=== PATIENT | male | born 1950 | race Caucasian/White ===

== ENCOUNTER 2020-12-13 09:02 | Outpatient (REF) | payer MEDICARE, BC, SELFPAY ==
[2020-12-13 10:20] LABS: Hemoglobin 16.2 g/dl (14.0-18.0); MANUAL DIFF FLAG SCAN; Mean Corpuscular Volume 95.9 fL (80-98); PLT CLUMP 1; SCAN SMEAR FLAG 1
[2020-12-13 10:22] LABS: Basophils Percent Auto 0.6 % (0-2); Eosinophils Absolute Auto 0.2 X10*3/uL (0.0-0.4); Hematocrit 48.9 % (42-52); Imm Gran Abs Auto 0.02 X10*3/uL (0.00-0.03); Imm Gran Pct Auto 0.4 % (0.0-0.4); Lymphocytes Absolute Auto 1.9 X10*3/uL (1.2-4.9); Lymphocytes Percent Auto 36.3 % (20-40); Mean Corpuscular HGB Conc 33.1 g/dl (31.0-36.0); Mean Corpuscular Hemoglobin 31.8 pg (27.0-33.0); Mean Platelet Volume 11.4 fL (9.4-12.4); Monocytes Absolute Auto 0.5 X10*3/uL (0.1-1.2); Monocytes Percent Auto 8.7 % (2-11); Neutrophils Absolute Auto 2.7 X10*3/uL (2.0-8.3); Platelet Count 136 X10*3/uL (160-400); Red Cell Distribution Width 13.5 % (11.0-16.0); White Blood Count 5.3 X10*3/uL (4.8-10.8)
[2020-12-13 11:06] LABS: Alanine Aminotransferase 19 U/L (0-40); Albumin Level 4.3 g/dL (3.5-5.0); Alkaline Phosphatase 71 U/L (39-117); Anion Gap 11 (12-20); Aspartate Amino Transferase 19 U/L (5-37); Blood Urea Nitrogen 15 mg/dL (9-16); Calcium 9.4 mg/dL (8.4-10.2); Carbon Dioxide 28 mmol/L (22-29); Chloride 105 mmol/L (96-108); Cholesterol 208 mg/dL; Estimated Glomerular Filt Rate > 60; Glucose Random 96 mg/dL (60-115); HDL Cholesterol 47 mg/dL; LDL Cholesterol Calculated 139 mg/dl; Potassium 4.8 mmol/L (3.3-5.1); Sodium 139 mmol/L (135-145); Total Protein 6.7 g/dL (6.5-8.0); Triglycerides 114 mg/dL
[2020-12-13 11:22] LABS: Free T4 (Free Thyroxine) 0.79 ng/dL (0.71-1.85); Prostate Specific Antigen Scr 1.14 ng/mL (<0.05-4.0); Thyroid Stimulating Hormone 1.34 uIU/mL (0.32-4.0)
[2020-12-13 11:59] LABS: Folate 12.1 ng/mL (> or = 4.0); Vitamin B12 890 pg/mL (200-900)
== END 2020-12-13 09:03 | disposition home or self-care (01) ==
LOC: HO.LAB 09:02
PROVIDERS: PCP Internal Medicine; Visit Provider Internal Medicine
DX: Z12.5 Encounter for screening for malignant neoplasm of prostate (principal); K21.9 Gastro-esophageal reflux disease without esophagitis; E78.00 Pure hypercholesterolemia, unspecified
CPT/HCPCS: 36415; 80053; 80061; 82607; 82746; 84153; 84439; 84443; 85025

== ENCOUNTER 2021-06-07 08:56 | Outpatient (REF) | payer MEDICARE, BC, SELFPAY ==
--- NOTE | ~2021-06-07 | XR_ITS ---
EXAMINATION: XR SHOULDER, LEFT CLINICAL INFORMATION: Shoulder pain COMPARISON: Chest radiograph 10/13/2016 TECHNIQUE: Left shoulder is imaged in 3 views. FINDINGS: There is no fracture or dislocation or destructive process. There are mild degenerative changes glenohumeral joint along with mild inferior spurring from the glenoid in inferior medial humeral head. There is no erosive change. Small lateral spur is seen from the acromium, likely origin deltoid. The acromioclavicular alignment is normal. There is mild spurring at the coracoid process at origin short head biceps. There are no visible rotator cuff calcifications. XR/XR shoulder LT min 2V IMPRESSION: 1. Mild degenerative change glenohumeral joint. 2. Mild spurring coracoid process and lateral acromium.
== END 2021-06-07 08:57 | disposition home or self-care (01) ==
LOC: HO.HOSX 08:56
PROVIDERS: Visit Provider Orthopaedic Surgery
DX: M24.812 Other specific joint derangements of left shoulder, not elsewhere classified (principal)
CPT/HCPCS: 73030; 99212

== ENCOUNTER 2021-06-17 19:20 | Outpatient (REF) | payer MEDICARE, BC, SELFPAY ==
--- NOTE | ~2021-06-17 | MR_ITS ---
EXAMINATION: MR SHOULDER WITHOUT CONTRAST, LEFT CLINICAL INFORMATION: Left shoulder pain for 2 months. Weightlifting injury. COMPARISON: Left shoulder radiographs dated 06/07/2021 TECHNIQUE: Multisequence MR imaging of the left shoulder was obtained without contrast on a high-field strength scanner. FINDINGS: ROTATOR CUFF: Full-thickness partial tear involving the anterior supraspinatus tendon measuring approximately 2.0 x 1.7 cm (AP x ML). Moderate subscapularis tendinosis with fluid extending proximally along the myotendinous junction. Moderate subscapularis tendinosis with distal articular surface partial tearing measuring 1.8 cm in ML dimension. No muscle atrophy or fatty infiltration. BICEPS: Thickening and abnormal signal of the proximal long head biceps tendon with flattening as it drapes over the lesser tuberosity, consistent with tendinosis and longitudinal partial tearing. CORACOACROMIAL ARCH: The undersurface of the acromion is curved with prominent subacromial spurring. Moderate acromioclavicular osteoarthritis. LABRUM/CAPSULE: No displaced labral tear. Intact joint capsule. GLENOHUMERAL JOINT/MARROW: Mild articular cartilage thinning. Tiny marginal osteophytes. MR/MR shoulder LT wo con IMPRESSION: 1. Full-thickness tear of the anterior supraspinatus tendon measuring 2.0 x 1.7 cm (AP x ML). Moderate infraspinatus tendinosis with fluid extending proximally along the myotendinous junction. Moderate subscapularis tendinosis with distal articular surface partial tearing. 2. Prominent proximal long head biceps tendinosis with longitudinal partial tearing as it drapes over the lesser tuberosity. 3. Moderate acromioclavicular osteoarthritis with prominent subchondral spurring. 4. Mild glenohumeral osteoarthritis.
== END 2021-06-17 19:21 | disposition home or self-care (01) ==
LOC: HO.MRI 19:20
PROVIDERS: Visit Provider Orthopaedic Surgery
DX: M24.812 Other specific joint derangements of left shoulder, not elsewhere classified (principal)
CPT/HCPCS: 73221

== ENCOUNTER → 2021-06-24 14:19 | Outpatient (BNVA) | payer MEDICARE, BC, SELFPAY | PROVIDERS: PCP Internal Medicine; Visit Provider Orthopaedic Surgery | DX: M75.122 Complete rotator cuff tear or rupture of left shoulder, not specified as traumatic (principal) | CPT/HCPCS: 99212 ==

== ENCOUNTER 2021-07-10 06:42 | Day surgery (SDC) | payer MEDICARE, BC, SELFPAY ==
[2021-07-02 16:41] VITALS: BMI 29.0
--- NOTE | 2021-07-09 08:22 | HO.ANESPROP2 ---
Documented by User: Laura Roblero NP 07/09/21 08:25 HPI - Anesthesia Eval Consult details Narrative: 70yo M for Left Arthroscopic Rotator Cuff Repair PMFSH Active Problems Active Problems: All Active Problems (Updated 06/24/21 @ 15:20 by Jeancarlos Olivo MD) Complete rotator cuff tear of left shoulder (Acute) Internal derangement of left shoulder (Acute) Impacted cerumen of both ears (Acute) Medicare annual wellness visit, initial (Acute) BPH (benign prostatic hyperplasia) (Acute) Hypercholesterolemia (Acute) GERD (gastroesophageal reflux disease) (Acute) Cerumen impaction (Acute) Past Medical History Medical History BPH (benign prostatic hyperplasia) GERD (gastroesophageal reflux disease) Hypercholesterolemia Reactive airway disease Surgical History Surgical History (Updated 07/10/21 @ 06:59 by Gladis Flores RN) H/O vasectomy History of cataract surgery Hx of colonoscopy Hx of LASIK Hx of tonsillectomy Tear of right supraspinatus tendon Social History Social History Alcohol intake: never Patient Tobacco Use Status: Former Tobacco user Quit Date: 40 yrs ago Use of substances other than those prescribed or required for medical reasons: No Are you DNR?: No Advance Directives: No Advance Directives Information Provided: Yes Current occupational status: employed 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 Allergies Allergy/AdvReac Type Severity Reaction Status Date / Time No Known Allergies Allergy Verified 07/10/21 06:49 Home Medications Medication Instructions Recorded Confirmed Last Taken Type acidophilus 100 million 1 cap PO DAILY cap 09/27/20 12/12/20 Unknown History cell-pectin, citrus 10 mg capsule (Acidophilus Probiotic) ascorbate calcium (vitamin C) 500 500 mg PO DAILY 09/27/20 12/12/20 Unknown History mg tablet aspirin 81 mg tablet,delayed 81 mg PO DAILY 09/27/20 12/12/20 Unknown History release (Adult Low Dose Aspirin) cetirizine 10 mg capsule (Zyrtec) 10 mg PO DAILY PRN 09/27/20 12/12/20 Unknown History fluticasone propionate 50 1 spray INTRANASAL DAILY 09/27/20 12/12/20 Unknown History mcg/actuation nasal spray,suspension (Flonase Allergy Relief) lysine 500 mg tablet (L-Lysine) 500 mg PO DAILY 09/27/20 12/12/20 Unknown History psyllium husk 3.4 gram/5.4 gram 1 tbsp PO DAILY 09/27/20 12/12/20 Unknown History oral powder (Metamucil) simethicone 125 mg capsule (Gas 125 mg PO BID-QID PRN 09/27/20 12/12/20 Unknown History Relief (simethicone)) Exam Exam Date and Time: July 09, 2021 0822 Height,Weight and Vital Signs: Height 5 ft 3 in Weight 74.389 kg Pertinent Lab Results Pertinent Lab Results: Laboratory Tests 12/13/20 12/13/20 09:29 09:29 WBC 5.3 Hgb 16.2 Hct 48.9 Plt Count 136 L Sodium 139 Potassium 4.8 Chloride 105 Carbon Dioxide 28 BUN 15 Creatinine 1.09 Assessment and Plan Assessment Anesthesia Assessment: Chart Reviewed Documented by User: Viji eHrman MD 07/10/21 07:22 [facility] Past Medical History Medical History BPH (benign prostatic hyperplasia) GERD (gastroesophageal reflux disease) Hypercholesterolemia Reactive airway disease Surgical History Surgical History (Updated 07/10/21 @ 06:59 by Gladis Flores RN) H/O vasectomy History of cataract surgery Hx of colonoscopy Hx of LASIK Hx of tonsillectomy Tear of right supraspinatus tendon Social History Social History Alcohol intake: never Patient Tobacco Use Status: Former Tobacco user Quit Date: 40 yrs ago Use of substances other than those prescribed or required for medical reasons: No Are you DNR?: No Advance Directives: No Advance Directives Information Provided: Yes Current occupational status: employed 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 Allergies Allergy/AdvReac Type Severity Reaction Status Date / Time No Known Allergies Allergy Verified 07/10/21 06:49 Home Medications Medication Instructions Recorded Confirmed Last Taken Type acidophilus 100 million 1 cap PO DAILY cap 09/27/20 12/12/20 Unknown History cell-pectin, citrus 10 mg capsule (Acidophilus Probiotic) ascorbate calcium (vitamin C) 500 500 mg PO DAILY 09/27/20 12/12/20 Unknown History mg tablet aspirin 81 mg tablet,delayed 81 mg PO DAILY 09/27/20 12/12/20 Unknown History release (Adult Low Dose Aspirin) cetirizine 10 mg capsule (Zyrtec) 10 mg PO DAILY PRN 09/27/20 12/12/20 Unknown History fluticasone propionate 50 1 spray INTRANASAL DAILY 09/27/20 12/12/20 Unknown History mcg/actuation nasal spray,suspension (Flonase Allergy Relief) lysine 500 mg tablet (L-Lysine) 500 mg PO DAILY 09/27/20 12/12/20 Unknown History psyllium husk 3.4 gram/5.4 gram 1 tbsp PO DAILY 09/27/20 12/12/20 Unknown History oral powder (Metamucil) simethicone 125 mg capsule (Gas 125 mg PO BID-QID PRN 09/27/20 12/12/20 Unknown History Relief (simethicone)) Exam Airway Mallampati Class: II TM Dist: >3cm Neck ROM: Full Partial: Upper and Lower
[2021-07-10] VITALS (7 sets, daily range): BP systolic 106–137; BP diastolic 56–81; PULSE 58–62; RESP 16–18; TEMP 36.6–36.9; O2SAT 95–98
[2021-07-10] MEDS: Lactated Ringers 1,000 ML 100 ML IVCONT (07:21)
--- NOTE | 2021-07-10 08:37 | MHC.SHP ---
Pre-Procedural Eval Section A Date of Service: 07/10/21 The patient is an INPATIENT: No Changes since office visit: Yes Patient answered all questions; No Cold of Flu in the past 2 weeks, No New Medical Problems and No Changes in Medication The History & Physical has been completed within 30 days and I have reviewed it.: Yes Section B Chief Complaint: rotator cuff tear Allergies: Allergies Allergy/AdvReac Type Severity Reaction Status Date / Time No Known Allergies Allergy Verified 07/10/21 06:49 Plan I have reviewed the history and physical and performed a pertinent physical examination on my patient. No changes have occurred unless specified.
--- NOTE | 2021-07-10 11:17 | P.BOP_ITS ---
Brief Operative Note Date of Service: 07/10/21 Pre-op diagnosis: left rotator cuff tear and SAD with biceps tenotomy Post-op diagnosis: same Procedure: Left rtc repair Implants: Gutierrez and nephew helacoil 4.75 x 2 and 5.0 helacoil knotless x2 Surgeon: Jeancarlos Olivo MD Anesthesia: GETA and regional Was an Hand Printed Circuit Board Assembler used for this Procedure?: Yes Hand Printed Circuit Board Assembler: Chayito Burris Estimated blood loss (mL): 10 IV fluids (mL): 1,000 Pathology: none sent Condition: stable Disposition: PACU
--- NOTE | 2021-07-10 11:21 | W.PM.OPN ---
Operative Note Operative Note Date of Service: 07/10/21 Narrative: Pre-op diagnosis: left rotator cuff tear and SAD with biceps tenotomy Post-op diagnosis: same Procedure: Left rtc repair Implants: Gutierrez and nephew helacoil 4.75 x 2 and 5.0 helacoil knotless x2 Surgeon: Jeancarlos Olivo MD Anesthesia: GETA and regional Was an Funeral Arranger used for this Procedure?: Yes Funeral Arranger: Chayito Burris Estimated blood loss (mL): 10 IV fluids (mL): 1,000 Pathology: none sent Condition: stable Disposition: PACU Procedure in detail: Patient was brought to the operating room and placed the the beach chair position. All bony prominences were well padded and the limb was prepped and draped in standard sterile fashion. A time out was called to identify proper site, proper procedure and proper surgeon. IV antibiotics per weight were administered. I began by making a posterolateral stab incision with a 15 blade. A blunt trochar was placed into the glenohumeral joint and I insufflated the joint with saline and a 30 degree arthroscope was placed. I established an outside- in anterior portal just distal to the biceps tendon. I then began my inspection of the glenohumeral joint. There was circumferential labral tearing and a tear of the biceps anchor. I performed a biceps tenotomy and circumferential labral debridement With a shaver and Wand. Cartilaginous surfaces were normal. This subscap [place] was intact. There was a large undersurface full-thickness rotator cuff tear. I then removed the trochar and entered the subacromial space. A direct lateral portal was then established and I performed a bursectomy. The cuff was then examined. There was a large crescentic full-thickness tear of the supraspinatus. it was mobile and I placed 2 4.75 medial row Healicoil anchors and then using a scorpion ran each of these a sutures through the cuff. I then debrided the rotator cuff bed down to bleeding bone and placed 2 lateral row 5.0 knotless suture anchors and a cross bridge technique brought tht cuff over adn down to the alteral row. I had excellent reproduction of the normal anatomy of rotator cuff and was satrisfied with the compression and tension in the cuff. I then performed a 5 mm subacromial decompression with a bur and took my final pictures. I was satisfied with the repair and the extent of decompression. All instrumentation was then removed portals were closed with nylon. Patient was placed into a abduction sling after sterile dressings were applied. He was extubated brought to recovery in stable condition there were no known complications.
== END 2021-07-10 12:42 | disposition home or self-care (01) ==
PROVIDERS: Visit Provider Orthopaedic Surgery
PROC: (CPT 29827; principal; 2021-07-10 08:20)
DX: M75.122 Complete rotator cuff tear or rupture of left shoulder, not specified as traumatic (principal); M75.42 Impingement syndrome of left shoulder; Z91.81 History of falling; J45.909 Unspecified asthma, uncomplicated; Z79.82 Long term (current) use of aspirin; Z87.891 Personal history of nicotine dependence; Z79.899 Other long term (current) drug therapy
CPT/HCPCS: 29827; 29826; 29822; C1713; J0171; J0690; J1100; J2250; J2405; J3010

== ENCOUNTER → 2021-07-22 11:28 | Outpatient (BNVA) | payer MEDICARE, BC, SELFPAY | PROVIDERS: Visit Provider Physician Assistant | DX: M75.122 Complete rotator cuff tear or rupture of left shoulder, not specified as traumatic (principal); Z98.890 Other specified postprocedural states | CPT/HCPCS: 99212 ==

== ENCOUNTER → 2021-08-21 10:59 | Outpatient (BNVA) | payer MEDICARE, BC, SELFPAY | PROVIDERS: Visit Provider Physician Assistant | DX: Z98.890 Other specified postprocedural states (principal) | CPT/HCPCS: 99212 ==

== ENCOUNTER → 2021-10-04 09:20 | Outpatient (BNVA) | payer MEDICARE, BC, SELFPAY | PROVIDERS: Visit Provider Physician Assistant | DX: Z47.89 Encounter for other orthopedic aftercare (principal) | CPT/HCPCS: 99212 ==

== ENCOUNTER → 2021-11-15 09:41 | Outpatient (BNVA) | payer MEDICARE, BC, SELFPAY | PROVIDERS: Visit Provider Orthopaedic Surgery | DX: Z98.890 Other specified postprocedural states (principal) | CPT/HCPCS: 99212 ==

== ENCOUNTER 2021-11-19 09:00 | Outpatient (RCR) | payer MEDICARE, BC, SELFPAY ==
--- NOTE | 2021-07-15 11:12 | MHC.PT.EP ---
[facility] [place] Office [place] Office [place] Office [address] Stefanie Ibarra [address] [phone] F: [phone] F: [phone] F: [phone] F: [phone] Physical Therapy Plan of Care Date of Evaluation: Date of Surgery: 07/10/21 Diagnosis: S/P left rotator cuff tear and SAD with biceps tenotomy ON 07/10/21 Assessment: 70 YO MALE REF TO PT S/P LEFT ARTHROSCOPIC RC (SUPRASPINATUS) REPAIR W BICEPS TENOTOMY AND SAD ON 07/10/21. Pt IS Rt HAND DOMINANT AND HAS H/O Rt RC REPAIR IN 2017. 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 THIS AM Pt PRESENTED POSTOP DAY 5 IN HIS IMMOB W ABD WEDGE. Pt HAS DECR ROM LEFT UE (SH AND ELB), DECR ADL PERFORMANCE, ACUTE POST -OP SORENESS WELL MANAGED, AND CLEAN/ HEALING INCISIONAL PORTS LEFT SH. Pt IS MOTIVATED FOR REHAB, HIS IS VERY SUPPORTIVE. HE IS A GOOD CANDIDATE FOR SKILLED PT TO GUIDE HIM IN HIS POST OP COURSE. Frequency and Duration: The patient will be seen 2 x WK x 14 WKS Short Term Goals: INITIATE ROM AND THER EXER PER PROTOCOL FOR Lt DISTAL UE AND PROM Lt PATRICK 2 WKS Pt'S LEFT SH PAIN DECR TO 2-3/10 IN 3 WKS REINFORCE PRECAUTIONS AND RESTRICTIONS ALONG POST OP Lt SH RC REPAIR/ BICEPS TENOTOMY/ SAD IN 2 WKS ENHANCE ADEQUATE SCAPULAR FUNCTION/ PREVENT MUSCULAR INHIBITION IN 3 WKS Clerical Methods Analyst Goals: Pt DEMON FULL PROM LEFT SH IN 4-5 WKS Pt DEMON FULL AROM Lt SH IN 10 WKS RESTORE Pt'S Lt SH STRENGTH PER PROTOCOL IN 14 WKS Pt RESUME ADLs ALLOWED BY PROTOCOL DEMON BY Pt'S SPADI SCORE IMPROVED BY AT LEAST 10 POINTS ( AT [id number]) IN 14 WKS Treatment Plan: Modalities to reduce pain, spasms and effusion. Manual therapy to restore motion and function. Therapeutic exercise to improve strength and flexibility. Neuromuscular re-education for posture and balance. Therapeutic activities to return to functional activities of daily living. Electronically signed by: Katelyn Russell PT Please sign and return to therapist. Thank you for your referral.
--- NOTE | 2021-11-19 09:52 | MHC.PT.DC ---
[facility] [place] Office [place] Office [place] Office [address] Stefanie Ibarra [address] [phone] F: [phone] F: [phone] F: [phone] F: [phone] Physical Therapy Discharge Report Diagnosis: S/P left rotator cuff tear and SAD with biceps tenotomy ON 07/10/21 Date of Surgery: 07/10/21 Date of Evaluation: 07/15/21 Date of Discharge: 11/19/21 Treatments to Date: 28 Cancellations to Date: No Shows to Date: Discharge Status: Achieved Goals Improved Function Independent with HEP Discharge Summary: Pt PROGRESSED NICELY IN HIS POST OP COURSE FOR Lt SH RC REPAIR W BICEP TENOTOMY. Pt DEMON FULL AROM, FUNCTIONAL AND EFFICIENT MUSCULAR STRENGTH IN LEFT SH COMPLEX, RESOLVED PAIN, AND RETURN TO REG ADLs- HE MET HIS PT GOALS AT THIS TIME , IS VERY MOTIVATED, AND HE FEELS READY FOR D/C AND CONT ON HIS OWN. OF SIGNIFICANCE, Pt'S SPADI SCORE IMPROVED FROM 116/130 AT EVAL TO 5/130 AT D/C TODAY. Electronically signed by: Katelyn Russell,PT Please sign and return to therapist. Thank you for your referral.
== END 2021-11-19 09:52 | disposition home or self-care (01) ==
LOC: HO.PT 09:00
PROVIDERS: Visit Provider Orthopaedic Surgery
DX: M75.122 Complete rotator cuff tear or rupture of left shoulder, not specified as traumatic (principal)
CPT/HCPCS: 97110; 97140; 97162; 97530

== ENCOUNTER 2021-12-20 08:22 | Outpatient (REF) | payer MEDICARE, BC, SELFPAY ==
[2021-12-20 08:47] LABS: MANUAL DIFF FLAG NO
[2021-12-20 09:09] LABS: Basophils Percent Auto 0.4 % (0-2); Eosinophils Absolute Auto 0.1 X10*3/uL (0.0-0.4); Eosinophils Percent Auto 2.1 % (0-4); Hemoglobin 16.1 g/dl (14.0-18.0); Imm Gran Abs Auto 0.01 X10*3/uL (0.00-0.03); Imm Gran Pct Auto 0.1 % (0.0-0.4); Lymphocytes Absolute Auto 1.9 X10*3/uL (1.2-4.9); Lymphocytes Percent Auto 28.5 % (20-40); Mean Corpuscular HGB Conc 33.5 g/dl (31.0-36.0); Mean Corpuscular Hemoglobin 31.3 pg (27.0-33.0); Mean Corpuscular Volume 93.2 fL (80.0-98.0); Mean Platelet Volume 11.6 fL (9.4-12.4); Monocytes Absolute Auto 0.6 X10*3/uL (0.1-1.2); Monocytes Percent Auto 8.6 % (2-11); Neutrophils Percent Auto 60.3 % (45-73); Platelet Count 150 X10*3/uL (160-400); Red Blood Count 5.15 X10*6/uL (4.60-5.80); Red Cell Distribution Width 13.7 % (11.0-16.0); White Blood Count 6.7 X10*3/uL (4.8-10.8)
[2021-12-20 09:38] LABS: Alanine Aminotransferase 20 U/L (0-40); Albumin Level 4.3 g/dL (3.5-5.0); Alkaline Phosphatase 79 U/L (39-117); Anion Gap 14 (12-20); Aspartate Amino Transferase 18 U/L (5-37); Blood Urea Nitrogen 18 mg/dL (9-16); Calcium 9.7 mg/dL (8.4-10.2); Carbon Dioxide 26 mmol/L (22-29); Chloride 105 mmol/L (96-108); Cholesterol 197 mg/dL; Estimated Glomerular Filt Rate > 60; Glucose Fasting 97 mg/dL (60-99); HDL Cholesterol 44 mg/dL; LDL Cholesterol Calculated 135 mg/dl; Potassium 4.8 mmol/L (3.3-5.1); Sodium 140 mmol/L (135-145); Total Protein 6.7 g/dL (6.5-8.0); Triglycerides 90 mg/dL
[2021-12-23 17:46] LABS: Lyme Abs Screen <0.90 index
== END 2021-12-20 08:23 | disposition home or self-care (01) ==
LOC: HO.LAB 08:22
PROVIDERS: PCP Internal Medicine; Visit Provider Nurse Practitioner Family
DX: Z00.00 Encounter for general adult medical examination without abnormal findings (principal); Z12.5 Encounter for screening for malignant neoplasm of prostate; I10 Essential (primary) hypertension; E78.00 Pure hypercholesterolemia, unspecified; T14.8XXA Other injury of unspecified body region, initial encounter; W57.XXXA Bitten or stung by nonvenomous insect and other nonvenomous arthropods, initial encounter
CPT/HCPCS: 36415; 80053; 80061; 84153; 85025; 86617; 86618

== ENCOUNTER 2022-04-02 11:20 | Outpatient (REF) | payer MEDICARE, BC, SELFPAY ==
--- NOTE | ~2022-04-02 | US_ITS ---
EXAMINATION: US RETROPERITONEAL LIMITED (AORTA) CLINICAL INFORMATION: Personal history of nicotine dependence. COMPARISON: None TECHNIQUE: Gaspar-scale, color Doppler and spectral Doppler evaluation of the abdominal aorta. FINDINGS: There is evidence of atherosclerotic disease with vessel wall calcification. The abdominal aorta is normal in caliber. No aneurysm is seen. The measurements of the aorta in maximum AP and transverse dimensions respectively are as follows: Proximal: 2.7 x 2.6 cm. Mid: 2.0 x 2.1 cm. Distal: 1.9 x 1.6 cm. PSV: 140 cm/s. The measurements of the common iliac arteries in maximum AP and TRV dimensions are as follows: Right: AP: 1.5 cm. TRV: 1.4 cm. Left: AP: 1.5 cm. TRV: 1.4 cm. US/US aorta IMPRESSION: No aneurysm is seen.
== END 2022-04-02 11:21 | disposition home or self-care (01) ==
LOC: HO.HMGCX 11:20
PROVIDERS: Visit Provider Nurse Practitioner Family
DX: Z13.6 Encounter for screening for cardiovascular disorders (principal); Z87.891 Personal history of nicotine dependence
CPT/HCPCS: 76775

== ENCOUNTER 2022-10-29 13:07 | Outpatient (REF) | payer MEDICARE, BC, SELFPAY ==
--- NOTE | ~2022-10-29 | XR_ITS ---
EXAMINATION: XR HAND, RIGHT CLINICAL INFORMATION: Middle finger pain. COMPARISON: None available. TECHNIQUE: PA, lateral, and oblique views of the right hand. FINDINGS: Bony alignment and mineralization are normal. There is a neutral ulnar variance. There is very mild osteoarthritic change of the interphalangeal joint of the thumb. There is variable osteoarthritic change of the second through fifth distal interphalangeal joints. This is most severe of the third and fifth distal interphalangeal joints. There is further mild osteoarthritic change of the second through fourth proximal interphalangeal joints. Mild osteoarthritic change is seen of the first through third metacarpophalangeal joints. No fracture or dislocation is seen. The proximal and distal carpal rows are intact. There is no abnormal bone erosion. No focal soft tissue swelling, gas or foreign body is seen. XR/XR hand RT 2V IMPRESSION: 1. There are multi-focal osteoarthritic changes of the right hand, as detailed. 2. No fracture or dislocation is seen. 3. There is no abnormal bony erosive change.
== END 2022-10-29 13:08 | disposition home or self-care (01) ==
LOC: HO.XRAY 13:07
PROVIDERS: PCP Internal Medicine; Visit Provider Internal Medicine
DX: M79.644 Pain in right finger(s) (principal)
CPT/HCPCS: 73120

== ENCOUNTER 2022-12-09 10:10 | Outpatient (REF) | payer MEDICARE, BC, SELFPAY ==
[2022-12-09 10:19] LABS: MANUAL DIFF FLAG NO
[2022-12-09 10:49] LABS: Basophils Absolute Auto 0.1 X10*3/uL (0.0-0.2); Basophils Percent Auto 0.8 % (0-2); Eosinophils Absolute Auto 0.1 X10*3/uL (0.0-0.4); Eosinophils Percent Auto 1.6 % (0-4); Hematocrit 48.4 % (42.0-52.0); Hemoglobin 16.1 g/dl (14.0-18.0); Imm Gran Abs Auto 0.01 X10*3/uL (0.00-0.03); Imm Gran Pct Auto 0.2 % (0.0-0.4); Lymphocytes Absolute Auto 1.9 X10*3/uL (1.2-4.9); Lymphocytes Percent Auto 30.4 % (20-40); Mean Corpuscular HGB Conc 33.3 g/dl (31.0-36.0); Mean Corpuscular Hemoglobin 31.3 pg (27.0-33.0); Mean Corpuscular Volume 94.2 fL (80.0-98.0); Mean Platelet Volume 11.5 fL (9.4-12.4); Monocytes Absolute Auto 0.5 X10*3/uL (0.1-1.2); Neutrophils Absolute Auto 3.7 x10*3/uL (2.0-8.3); Platelet Count 144 X10*3/uL (160-400); Red Blood Count 5.14 X10*6/uL (4.60-5.80); White Blood Count 6.3 X10*3/uL (4.8-10.8)
[2022-12-09 11:15] LABS: Alanine Aminotransferase 20 U/L (0-40); Albumin Level 4.3 g/dL (3.5-5.0); Alkaline Phosphatase 73 U/L (39-117); Anion Gap 10 (12-20); Aspartate Amino Transferase 22 U/L (5-37); Blood Urea Nitrogen 19 mg/dL (9-16); Calcium 9.2 mg/dL (8.4-10.2); Carbon Dioxide 28 mmol/L (22-29); Chloride 106 mmol/L (96-108); Cholesterol 202 mg/dL; Estimated Glomerular Filt Rate > 60; Glucose Random 93 mg/dL (60-115); HDL Cholesterol 43 mg/dL; LDL Cholesterol Calculated 140 mg/dl; Potassium 4.4 mmol/L (3.3-5.1); Sodium 140 mmol/L (135-145); Total Protein 6.5 g/dL (6.5-8.0); Triglycerides 95 mg/dL
[2022-12-09 11:46] LABS: Folate 14.9 ng/mL (> or = 4.0); Free T4 (Free Thyroxine) 0.84 ng/dL (0.71-1.85); Thyroid Stimulating Hormone 1.17 uIU/mL (0.32-4.0); Vitamin B12 618 pg/mL (200-900)
== END 2022-12-09 10:11 | disposition home or self-care (01) ==
LOC: HO.LAB 10:10
PROVIDERS: PCP Internal Medicine; Visit Provider Internal Medicine
DX: E78.00 Pure hypercholesterolemia, unspecified (principal)
CPT/HCPCS: 36415; 80053; 80061; 82607; 82746; 84439; 84443; 85025

== ENCOUNTER → 2023-05-13 08:21 | Outpatient (BNVA) | payer MEDICARE, BC, SELFPAY | PROVIDERS: PCP Internal Medicine; Visit Provider Physical Medicine & Rehabilitation ==

== ENCOUNTER → 2023-05-13 08:21 | Outpatient (AMB) | payer MEDICARE, BC, SELFPAY ==
--- NOTE | 2023-05-13 08:26 | A.OFFVIS_ITS ---
Intake Vital Signs 05/13/23 08:34 Height 5 ft 3 in Weight 162 lb BMI 28.7 Intake Visit Reasons: New Prob- B/L hand pain and numbness Intake Note: Wu is a 72 year old right hand dominant male who presents today for a new problem visit with complaints of hand pain, numbness and tingling. States he is experiencing CTS for about 1.5 year and has worsen especially in the mornings. States he wakes up with stiff hands and at times painful. Reports he tried a brace but it did not help much therefore he discontinue use of brace. Ni EMG done. Allergies No Known Allergies Allergy (Verified 05/13/23 08:37) Medication List - Last Reconciled 05/13/23 by Agustina Mai MD acidophilus-pectin, citrus 100 million cell-10 mg (Acidophilus Probiotic) 1 cap PO DAILY albuterol sulfate 90 mcg/actuation (ProAir HFA) 2 puffs inhalation Q4-6H PRN ascorbate calcium (vitamin C) 500 mg PO DAILY blood pressure monitor (Blood Pressure Kit) As directed cetirizine (Zyrtec) 10 mg PO DAILY PRN cholecalciferol (vitamin D3) 50 mcg PO DAILY fluticasone propionate 50 mcg/actuation (Flonase Allergy Relief) 1 spray intranasal DAILY lysine (L-Lysine) 500 mg PO DAILY magnesium oxide 400 mg PO DAILY psyllium husk (Metamucil) 1 tbsp PO DAILY simethicone (Gas Relief (simethicone)) 125 mg PO BID-QID PRN HPI HPI Comments History of Present Illness Details Over 1 year of numbness on 3rd and 4th digits, but when he wakes up the whole hand is numb. Burning sensation sometimes. No EMG yet. Not dropping things. 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 Denies neck pain. Treatment done so far: aspirin for severe prn home exercises brace did not work [facility] Medical History (Updated 05/13/23 @ 08:38 by Agustina Mai MD) Arthritis of right hand COVID-19 virus infection Elevated blood pressure reading Tick bite (~11/2021) Encounter for Medicare annual wellness exam Internal derangement of left shoulder Impacted cerumen of both ears Medicare annual wellness visit, initial BPH (benign prostatic hyperplasia) Reactive airway disease Hypercholesterolemia GERD (gastroesophageal reflux disease) Cerumen impaction Surgical History History of rotator cuff surgery S/P left rotator cuff repair Hx of colonoscopy Hx of LASIK History of cataract surgery H/O vasectomy Hx of tonsillectomy Tear of right supraspinatus tendon Social History Housing: House Alcohol intake: never Patient Tobacco Use Status: Former Tobacco user Quit Date: 40 yrs ago e-Cigarette/Vaping Use: Never Used Second Hand Smoke Exposure: No Current occupational status: employed 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 MSK: Inspection reveals appropriate head and neck positioning. No pain with palpation over the neck musculature. Cervical ROM was full. Spurling's sign negative. Bilateral shoulder ROM WNL. No ligamentous laxity or crepitance. No increased effusion. Hawkin's test is negative. No joint effusion noted. No deformity noted. No intrinsic hand weakness noted. No atrophy noted. Fredis test negative. Carpal compression test negative. Tinel sign negative. Isabella nodes on 3rd and 2nd DIP joints. Strength is 5/5 in all muscle groups tested. No increased tone noted. Neurological: Neurologic examination of the upper and lower extremities was nonfocal with intact sensation, muscle stretch reflexes and without focal motor deficits . Mariee?s negative bilaterally. Gait is non-antalgic without loss of balance. Results Reviewed Results Reviewed: I independently reviewed the results of the following: X-ray right hand showed arthritis in the DIP joints EXAMINATION: XR HAND, RIGHT CLINICAL INFORMATION: Middle finger pain. COMPARISON: None available. TECHNIQUE: PA, lateral, and oblique views of the right hand. FINDINGS: Bony alignment and mineralization are normal. There is a neutral ulnar variance. There is very mild osteoarthritic change of the interphalangeal joint of the thumb. There is variable osteoarthritic change of the second through fifth distal interphalangeal joints. This is most severe of the third and fifth distal interphalangeal joints. There is further mild osteoarthritic change of the second through fourth proximal interphalangeal joints. Mild osteoarthritic change is seen of the first through third metacarpophalangeal joints. No fracture or dislocation is seen. The proximal and distal carpal rows are intact. There is no abnormal bone erosion. No focal soft tissue swelling, gas or foreign body is seen. XR/XR hand RT 2V IMPRESSION: 1. There are multi-focal osteoarthritic changes of the right hand, as detailed. 2. No fracture or dislocation is seen. 3. There is no abnormal bony erosive change. I reviewed records from the following: Orthopedics PCP Assessment & Plan Assessment & Plan (1) Arthritis of right hand: Code(s): M19.041 - Primary osteoarthritis, right hand (2) Numbness of fingers: Comment: R hand 3rd and 4th finger Code(s): R20.0 - Anesthesia of skin (3) Numbness of right hand: Code(s): R20.0 - Anesthesia of skin Plan Documented right hand arthritis basin x-ray. Complaining of right hand numbness which is consistent with Carpal Tunnel Syndrome. We will schedule for EMG. We talked about wearing the wrist splints more consistently every night. We talked about possible surgery if EMG shows moderate to severe results. Assessment and plan discussed with patient, and patient was agreeable. All questions were answered thoroughly. Agustina Mai MD, BENJAMÍN Board Certified, [place] [employer] and [employer] (ABPMR) Board Certified, [place] [employer] Electrodiagnostic [employer] (ABEM) Coding Level of Care Code New Pt Level 3 (26788) Diagnoses Arthritis of right hand M19.041 Numbness of fingers R20.0 Numbness of right hand R20.0
[2023-05-13 08:34] VITALS: BMI 28.7
== END ==
PROVIDERS: PCP Internal Medicine; Visit Provider Physical Medicine & Rehabilitation
DX: M19.041 Primary osteoarthritis, right hand (principal); R20.0 Anesthesia of skin
CPT/HCPCS: 99203

== ENCOUNTER 2023-06-10 13:13 | Outpatient (REF) | payer MEDICARE, BC, SELFPAY ==
--- NOTE | 2023-06-10 13:15 | EMG_ITS ---
Chief complaint: Right hand numbness, improved since wearing wrist splint more consistently at night Reason for referral: Evaluate for Carpal Tunnel Syndrome Procedure done: Right upper extremity NCS/EMG Precautions and/or limitations: None The limb temperature was monitored continuously and remained between 32-36 degrees C during the performance of the NCS. Nerve Conduction Studies Anti Sensory Summary Table ?Stim Site NR Onset (ms) Norm Onset (ms) Peak (ms) Norm Peak (ms) O-P Amp (?V) Norm O-P Amp Site1 Site2 Delta-0 (ms) Dist (cm) Jordan (m/s) Norm Jordan (m/s) Right Median Anti Sensory (2nd Digit) Wrist ? 4.7 5.9 <3.6 12.7 >10 Wrist 2nd Digit 4.7 14.0 30 Right Radial Anti Sensory (Thumb) Forearm ? 2.3 2.6 <3.1 11.1 Forearm Thumb 2.3 0.0 Right Ulnar Anti Sensory (5th Digit) Wrist ? 2.7 3.7 <3.7 15.4 >15.0 Wrist 5th Digit 2.7 14.0 52 Motor Summary Table ?Stim Site NR Onset (ms) Norm Onset (ms) O-P Amp (mV) Norm O-P Amp iAmp (mV) Amp (1st) (%) Site1 Site2 Delta-0 (ms) Dist (cm) Jordan (m/s) Norm Jordan (m/s) Right Median Motor (Abd Poll Brev) Wrist ? 5.5 <3.9 4.6 >4.5 5.5 100.0 Elbow Wrist 4.4 19.0 43 >45 Elbow ? 9.9 4.2 5.1 91.3 Right Ulnar Motor (Abd Dig Minimi) Wrist ? 3.0 <3.0 10.6 >5 12.9 100.0 B Elbow Wrist 4.0 19.0 48 >45 B Elbow ? 7.0 10.4 12.9 98.1 A Elbow B Elbow 1.5 10.0 67 >45 A Elbow ? 8.5 10.2 12.6 96.2 EMG ?Side Muscle Nerve Root Ins Act Fibs Psw Amp Dur Poly Recrt Int Pat Comment Right 1stDorInt Ulnar C8-T1 Nml Nml Nml Nml Nml 0 Nml Complete Right FlexCarRad Median C6-7 Nml Nml Nml Nml Nml 0 Nml Complete Right Biceps Musculocut C5-6 Nml Nml Nml Nml Nml 0 Nml Complete Right Triceps Radial C6-7-8 Nml Nml Nml Nml Nml 0 Nml Complete Right Deltoid Axillary C5-6 Nml Nml Nml Nml Nml 0 Nml Complete FINDINGS: Right median motor nerve showed prolonged distal latency, normal amplitude and slow conduction velocity. Right median sensory nerve showed prolonged peak latency. All other nerves tested were within normal. Concentric needle EMG was performed in selected muscles of the right upper extremity. Study did not reveal signs of electric abnormalities as shown in the table below. IMPRESSION: 1. This is an abnormal study. 2. There is electrodiagnostic evidence for right moderate-severe median neuropathy at the wrist, consistent with carpal tunnel syndrome. 3. There is no electrodiagnostic evidence for ulnar neuropathy, brachial plexopathy, or cervical radiculopathy. Clinical comment: He will consider surgery, to call ortho office if needs appointment. Referring him to OT. Thank you for your kind referral. Agustina Mai MD, BENJAMÍN Board Certified, [place] Board [employer] Physical Medicine and Rehabilitation (ABPMR) Board Certified, [place] Board of Electrodiagnostic Medicine (ABEM) CODIN [id number] MTDD
== END 2023-06-10 13:14 | disposition home or self-care (01) ==
LOC: HO.NEURO 13:13
PROVIDERS: PCP Internal Medicine; Visit Provider Physical Medicine & Rehabilitation
DX: M19.041 Primary osteoarthritis, right hand (principal); R20.0 Anesthesia of skin
CPT/HCPCS: 95886; 95909

== ENCOUNTER → 2023-06-10 13:15 | Outpatient (BNV) | payer MEDICARE, BC, SELFPAY | PROVIDERS: PCP Internal Medicine; Visit Provider Physical Medicine & Rehabilitation | DX: G56.11 Other lesions of median nerve, right upper limb (principal); G56.01 Carpal tunnel syndrome, right upper limb | CPT/HCPCS: 95886; 95909 ==

== ENCOUNTER 2023-06-29 15:00 | Outpatient (RCR) | payer MEDICARE, BC, SELFPAY ==
--- NOTE | 2023-06-29 15:49 | MHC.OT.DC ---
[address] [phone] F: [phone] Occupational Therapy Discharge Note Patient Name: Wu Gan Gedelvis Provider: Agustina Mai Diagnosis: Right CTS Date of Surgery: Date of Evaluation: 06/22/23 Date of Discharge: 06/29/23 Treatments to Date: 2 Cancellations to Date: No Shows to Date: Discharge Status: Achieved Goals Independent with HEP Recommend MD Follow-up Discharge Summary: Pt with a diagnosis of moderate to severe median nerve compression at his right carpal wrist seen 2 times for a night wrist orthosis in neutral, education on self management of CTS and practice with tendon and nerve glides He demonstrates independence with self management including modifying his gym work outs to protect carpal wrist He is pain free and reports minimal to no difficulty due to right hand symptoms Pt considering a CTR if symptoms are not improving with self management Pt goals met. Electronically Signed By: Qian Magallanes OT CHT CLT Reviewed/agree with student documentation: Therapist: Please Sign and return to therapist, thank you for your referral.
== END 2023-06-29 15:50 | disposition home or self-care (01) ==
LOC: HO.OT 15:00
PROVIDERS: PCP Internal Medicine; Visit Provider Physical Medicine & Rehabilitation
DX: G56.01 Carpal tunnel syndrome, right upper limb (principal)
CPT/HCPCS: 97110; 97165

== ENCOUNTER 2023-08-20 15:48 | Outpatient (AMB) | payer MEDICARE, BC, SELFPAY ==
[2023-08-20 15:49] VITALS: BP 136/72; PULSE 67; O2SAT 98; BMI 28.9
--- NOTE | 2023-08-20 15:49 | A.OFFPC_ITS ---
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 Review of the notes has moderate to severe carpal tunnel syndrome on the right presently on occupational therapy. R nasal congestion with R ear congested and R jawpopping 2 months congested and 2 weeks jaw. [facility] Medical History (Updated 08/20/23 @ 16:30 by Garrison Ewing MD) Carpal tunnel syndrome of right wrist Arthritis of right hand COVID-19 virus infection Elevated blood pressure reading Tick bite (~11/2021) Encounter for Medicare annual wellness exam Internal derangement of left shoulder Impacted cerumen of both ears Medicare annual wellness visit, initial BPH (benign prostatic hyperplasia) Reactive airway disease Hypercholesterolemia GERD (gastroesophageal reflux disease) Cerumen impaction Surgical History History of rotator cuff surgery S/P left rotator cuff repair Hx of colonoscopy Hx of LASIK History of cataract surgery H/O vasectomy Hx of tonsillectomy Tear of right supraspinatus tendon Social History Housing: House Alcohol intake: never Patient Tobacco Use Status: Former Tobacco user Quit Date: 40 yrs ago e-Cigarette/Vaping Use: Never Used Second Hand Smoke Exposure: No Current occupational status: employed 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 How often do you have a drink containing alcohol?: Never Total Score: 0 BARTOLO-7 AMB Questionnaire BARTOLO-7 Date BARTOLO - 7 assessed: 10/27/22 Source: Developed by DrsAnanda Mcfarlane, Lexie Grossman, Chente Byrne and colleagues, with an educational karolyn from [employer]. Physical exam (Primary Care) Vital Signs: Last Vital Signs Pulse 67 08/20/23 15:49 BP 136/72 08/20/23 15:49 Pulse Ox 98 08/20/23 15:49 Oxygen Delivery Method Room Air 08/20/23 15:49 BMI result Body Mass Index 28.9 Tobacco/Smoking Status: Tobacco use Status Tobacco use date assessed 08/20/23 08/20/23 15:50 Patient Tobacco Use Status Former Tobacco user 08/20/23 15:50 e-Cigarette/Vaping Use Never Used 08/20/23 15:50 Thrive Assessment: Date of Thrive Assessment Date Thrive assessed 10/27/22 08/20/23 15:50 Const General: alert; No acute distress Eyes Conjunctivae: conjunctivae normal Resp Auscultation: clear to auscultation bilaterally Cardio Rate: regular rate Rhythm: regular rhythm GI Inspection: Yes normal to inspection Extrem General: Yes normal to inspection and No edema Assessment and Plan Assessment & Plan (1) Carpal tunnel syndrome of right wrist: Comment: Severe June 2023 Code(s): G56.01 - Carpal tunnel syndrome, right upper limb Plan: Patient follows up with orthopedics. Placed on occupational therapy. Discussed with the patient the problem patient will follow-up with orthopedics. (2) Arthritis of right hand: Code(s): M19.041 - Primary osteoarthritis, right hand Plan: Keep active may use Voltaren gel (3) GERD (gastroesophageal reflux disease): Code(s): K21.9 - Gastro-esophageal reflux disease without esophagitis Qualifiers: Esophagitis presence: without esophagitis Qualified Code(s): K21.9 - Gastro-esophageal reflux disease without esophagitis Plan: Avoid the foods that causes that usually spicy foods, tomato products, juices, coffee, soda and foods that your sensitive to. After eating do not lie down, allow 3-4 hours before in lie down. And keep the head of bed above 30 degrees to avoid the acid from going up. (4) Impacted cerumen of right ear: Code(s): H61.21 - Impacted cerumen, right ear Plan: Scoop used TM intact, mild redness on the ear canal, TM mild bulge (5) Otitis media: Code(s): H66.90 - Otitis media, unspecified, unspecified ear Plan: antibiotic treatment sent which can help the sinus congestion (6) Sinus congestion: Code(s): R09.81 - Nasal congestion Medications: New amoxicillin-pot clavulanate 500-125 mg (Augmentin) 1 tab PO BID 14 tabs 0RF H66.90 - Otitis media, unspecified, unspecified ear Coding Level of Care Code Est Pt Level 4 (59263) Diagnoses Carpal tunnel syndrome of right wrist G56.01 Arthritis of right hand M19.041 Gastroesophageal reflux disease without esophagitis K21.9 Esophagitis presence: without esophagitis Impacted cerumen of right ear H61.21 Otitis media H66.90 Sinus congestion R09.81
== END 2023-08-20 16:35 | disposition home or self-care (01) ==
PROVIDERS: PCP Internal Medicine; Visit Provider Internal Medicine
DX: G56.01 Carpal tunnel syndrome, right upper limb (principal); M19.041 Primary osteoarthritis, right hand; K21.9 Gastro-esophageal reflux disease without esophagitis; H61.21 Impacted cerumen, right ear; H66.90 Otitis media, unspecified, unspecified ear; R09.81 Nasal congestion
CPT/HCPCS: 99214

== ENCOUNTER 2023-09-08 13:02 | Outpatient (AMB) | payer MEDICARE, BC, SELFPAY ==
[2023-09-08 13:13] VITALS: BMI 28.9
--- NOTE | 2023-09-08 13:13 | A.OFFVIS_ITS ---
Intake Vital Signs 09/08/23 13:13 Height 5 ft 3 in Weight 163 lb BMI 28.9 Intake Visit Reasons: Rt CTS, Discuss Surgery Intake Note: Wu 72 yr old male presents today for his follow up visit for his CTS in his right hand. States he would like to discuss surgery. EMG done. Last seen with DR. Oliver for right hand O.A pain. Allergies No Known Allergies Allergy (Verified 09/08/23 13:22) HPI Rt CTS, Discuss Surgery HPI Details Wu is a 72 year old right hand dominant man who presents for a NCS review of his right hand numbness. He complains of numbness in the thumb, index, and middle fingers of his right hand. Symptoms intermittent, but daily, worse at night. He has some numbness in the tip of his index & middle fingers today. He also complains of right hand pain. He was seen by Dr. Oliver for right hand OA and was referred to OT hand therapy. He did not find this particularly helpful. [facility] Medical History (Updated 08/20/23 @ 16:30 by Garrison Ewing MD) Carpal tunnel syndrome of right wrist Arthritis of right hand COVID-19 virus infection Elevated blood pressure reading Tick bite (~11/2021) Encounter for Medicare annual wellness exam Internal derangement of left shoulder Impacted cerumen of both ears Medicare annual wellness visit, initial BPH (benign prostatic hyperplasia) Reactive airway disease Hypercholesterolemia GERD (gastroesophageal reflux disease) Cerumen impaction Surgical History History of rotator cuff surgery S/P left rotator cuff repair Hx of colonoscopy Hx of LASIK History of cataract surgery H/O vasectomy Hx of tonsillectomy Tear of right supraspinatus tendon Social History Housing: House Alcohol intake: never Patient Tobacco Use Status: Former Tobacco user Quit Date: 40 yrs ago e-Cigarette/Vaping Use: Never Used Second Hand Smoke Exposure: No Current occupational status: employed 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 Cognitive needs: No Hearing needs: No Vision needs: Yes Review of Systems Const All systems reviewed & are unremarkable except as noted in HPI and below Physical Exam Vital Signs: BMI result Body Mass Index 28.9 Const General: cooperative, healthy appearing and no acute distress Orientation/consciousness: patient oriented x3 HEENT Head: Yes normocephalic and Yes atraumatic Eyes EOM: EOMs intact bilaterally Resp Effort & Inspection: normal respiratory effort and able to speak in complete sentences Cardio Jugular venous distension: no JVD Skin General skin exam: turgor normal Rashes: no rashes Neuro General: patient oriented x3 Extrem Other: Evaluation of Right Upper Extremity: The patient is alert, oriented, and in no acute distress Neuro: Dense numbness to the radial aspect of the index finger and tip of the middle finger. Normal sensation to all other digits of his right hand. No thenar or intrinsic wasting Good APB muscle belly firing and good finger cross Vascular: Cap refill brisk ROM: He can make a fist and extend all his digits No locking or catching Skin: No lacerations or abrasions. General: No Ecchymosis. No Erythema or evidence of infection. Nerve Conduction Study: Right side only IMPRESSION: 1. This is an abnormal study. 2. There is electrodiagnostic evidence for right moderate-severe median neuropathy at the wrist, consistent with carpal tunnel syndrome. 3. There is no electrodiagnostic evidence for ulnar neuropathy, brachial plexopathy, or cervical radiculopathy. Agustina Mai MD, BENJAMÍN 06/10/23 Radiographs: 3 views of the right hand from 10/29/22 were reviewed by me today in clinic. No fractures or dislocations. he has some generalized arthritic changes in multiple DIP & PIP joints as well as some early basal joint OA seen on radiographs. Psych Appearance: grossly normal Affect: normal affect Attitude: cooperative Assessment & Plan Assessment & Plan (1) Carpal tunnel syndrome of right wrist: Comment: Severe June 2023 Code(s): G56.01 - Carpal tunnel syndrome, right upper limb (2) Arthritis of right hand: Code(s): M19.041 - Primary osteoarthritis, right hand Plan Assessment & Plan: 1. Right Carpal tunnel syndrome, moderate-severe Dense numbness to the middle fingertip & radial half of the index finger Other symptoms intermittent, but daily, worse at night. I educated her about this condition I discussed operative and non-operative treatment options The patient would like to proceed with surgery The risks and benefits of operative treatment were discussed with the patient and the patient wishes to proceed with surgery. These risks include, but are not limited to risk of damage to blood vessels, nerves, tendons, infection, recurrence, incomplete relief of preoperative symptoms, persistent pain, p ossible need for further surgery and the risks associated with regional blocks and anesthesia. The plan is to take the patient to the operating room sometime in the next few weeks for the following procedures: 1. Right carpal tunnel release, under local All of the preoperative paperwork including the consent was reviewed today. All the patient's questions were answered. The patient understands that they will be contacted by our plastic surgery technician soon to schedule this procedure He denies Diabetes, blood thinners, asthma, heart, lung, kidney issues 2. Right hand osteoarthritis In multiple DIP & PIP joints I educated him about hand osteoarthritis and activity modification. I recommend he continue with OT hand therapy and working on hand range of motion exercises. Scribed for Sarah Cabral MD by Ludin Gonzales, biomedical engineering director, on 09/08/23 at 1:30 PM, EST. Coding Level of Care Code New Pt Level 4 (52696) Diagnoses Carpal tunnel syndrome of right wrist G56.01 Arthritis of right hand M19.041
== END 2023-09-08 13:40 | disposition home or self-care (01) ==
PROVIDERS: PCP Internal Medicine; Visit Provider Orthopaedic Surgery
DX: G56.01 Carpal tunnel syndrome, right upper limb (principal); M19.041 Primary osteoarthritis, right hand
CPT/HCPCS: 99204

== ENCOUNTER → 2023-09-08 13:02 | Outpatient (BNVA) | payer MEDICARE, BC, SELFPAY | PROVIDERS: PCP Internal Medicine; Visit Provider Orthopaedic Surgery | DX: G56.01 Carpal tunnel syndrome, right upper limb (principal); M19.041 Primary osteoarthritis, right hand | CPT/HCPCS: 99202 ==

== ENCOUNTER 2024-01-12 08:52 | Outpatient (AMB) | payer MEDICARE, BC, SELFPAY ==
[2024-01-12 09:00] VITALS: BP 130/68; PULSE 62; O2SAT 97; BMI 26.9
--- NOTE | 2024-01-12 09:00 | A.OFFVIS_ITS ---
Intake Vital Signs 01/12/24 09:00 Height 5 ft 3 in Weight 152 lb 0.2 oz BMI 26.9 BP 130/68 Blood Pressure Location Lt brachial Position Sitting Pulse 62 Pulse Source Pulse Oximeter Pulse Oximetry (%) 97 Oxygen Delivery Method Room Air Intake Visit Reasons: SWV Allergies No Known Allergies Allergy (Verified 01/12/24 09:00) Medication List - Last Reconciled 01/12/24 by Garrison Ewing MD acidophilus-pectin, citrus 100 million cell-10 mg (Acidophilus Probiotic) 1 cap PO DAILY albuterol sulfate 90 mcg/actuation (ProAir HFA) 2 puffs inhalation Q4-6H PRN ascorbate calcium (vitamin C) 500 mg PO DAILY blood pressure monitor (Blood Pressure Kit) As directed cetirizine (Zyrtec) 10 mg PO DAILY PRN cholecalciferol (vitamin D3) 50 mcg PO DAILY fluticasone propionate 50 mcg/actuation (Flonase Allergy Relief) 1 spray intranasal DAILY lysine (L-Lysine) 500 mg PO DAILY magnesium oxide 400 mg PO DAILY psyllium husk (Metamucil) 1 tbsp PO DAILY HPI SWV HPI Details 73-year-old male with a history of GERD right wrist carpal tunnel coming in for annual well visit. Last seen in 08/29/2023. Colonoscopy is up-to-date 08/29/2024 years. had chest discomfort and was burping. weak stream FOR[facility], [facility] Medical History (Updated 01/12/24 @ 18:39 by Garrison Ewing MD) Carpal tunnel syndrome of right wrist Arthritis of right hand COVID-19 virus infection Elevated blood pressure reading Tick bite (~11/2021) Encounter for Medicare annual wellness exam Internal derangement of left shoulder Impacted cerumen of both ears Medicare annual wellness visit, initial BPH (benign prostatic hyperplasia) Reactive airway disease Hypercholesterolemia GERD (gastroesophageal reflux disease) Cerumen impaction Surgical History History of rotator cuff surgery S/P left rotator cuff repair Hx of colonoscopy Hx of LASIK History of cataract surgery H/O vasectomy Hx of tonsillectomy Tear of right supraspinatus tendon Social History (Updated 01/12/24 @ 09:41 by Garrison Ewing MD) Housing: House Alcohol intake: former Comment: stopped 45 years ago (28 years old Patient Tobacco Use Status: Former Tobacco user Years Smoked: stopped 28 years old e-Cigarette/Vaping Use: Never Used Second Hand Smoke Exposure: No Current occupational status: employed 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 Cognitive needs: No Hearing needs: No Vision needs: Yes Questionnaire Medicare Wellness Checkup [age] What gender do you identify with?: male During the past 4 weeks, how much have you been bothered by emotional problems such as feeling anxious, depressed, irritable, sad or downhearted, and blue?: not at all During the past 4 weeks, has your physical & emotional health limited your social activities with family, friends, neighbors, or groups?: not at all During the past 4 weeks, how much bodily pain have you generally had?: very mild pain During the past 4 weeks, was someone available to help you if you needed & wanted help?: yes, as much as I wanted During the past 4 weeks, what was the hardest physical activity you could do for at least 2 minutes?: very heavy Can you get to places out of walking distance without help? (For eg., can you travel alone on buses, taxis or drive your car?): Yes Can you go shopping for groceries or clothes without someone's help?: Yes Can you prepare your own meals?: Yes Can you do your housework without help?: Yes Because of any health problems, do you need the help of another person with your personal care needs such as eating, bathing, dressing or getting around the house?: No Can you handle your own money without help?: Yes During the past 4 weeks, how would you rate your health in general?: excellent During the past 4 weeks how have things been going for you?: very well; could hardly better Are you having difficulties driving your car?: no Do you always fasten your seat belt when you are in a car?: yes, usually During past 4 weeks, have you been bothered by the following: never: Falling or dizzy when standing up, Sexual problems?, Trouble eating well?, Teeth or denture problems? and Problems using the telephone? and seldom: Tiredness or fatigue? Have you fallen 2 or more times in the past year?: No Are you afraid of falling?: No Are you a smoker?: no During the past 4 weeks, how many drinks of wine, beer, or other alcoholic beverages did you have?: no alcohol at all Do you exercise for about 20 minutes 3 or more times a week?: yes, most of the time Have you been given information to help with the following?: no: Hazards in your house that might hurt you? and no: Keeping track of your medications? How often do you have trouble taking medicines the way you have been told to take them?: I always take medicine as prescribed How confident are you that you can control & manage most of your health problems?: very confident What is your race?: White PHQ-9 Over the last 2 weeks, how often have you been bothered by any of the following problems? 1. Little interest or pleasure in doing things: not at all 2. Feeling down, depressed, or hopeless: not at all 3. Trouble falling or staying asleep, or sleeping too much: not at all 4. Feeling tired or having little energy: several days 5. Poor appetite or overeating: not at all 6. Feeling bad about yourself - or that you are a failure or have let yourself or your family down: not at all 7. Trouble concentrating on things, such as reading the newspaper or watching television: not at all 8. Moving or speaking so slowly that other people could have noticed. Or the opposite - being so fidgety or restless that you have been moving around a lot more than usual: not at all 9. Thoughts that you would be better off or of hurting yourself in some way: not at all Total score: 1 Depression Screening Interpretation: Negative Depression Screening Done: Yes Source: Developed by Drs. Wu Mcfarlane, Lexie Grossman, Chente Byrne and colleagues, with an educational karolyn from [employer]. Review of Systems Const Denies poor appetite and Denies weakness Eyes Denies no additional complaints ENT Reports Normal hearing present, Denies dizziness, Denies nasal congestion, Denies tinnitus and Denies sore throat Card Denies chest pain, Denies syncope, Denies rapid heart rate and Denies dyspnea Resp Denies cough and Denies dyspnea GI Denies change in stool character, Reports constipation, Denies diarrhea, Denies nausea and Denies vomiting Denies dysuria and Denies urinary frequency Neuro Reports Normal hearing present, Denies confusion, Denies dizziness, Denies syncope and Denies weakness Psych Denies confusion Physical Exam Vital Signs: Last Vital Signs Pulse 62 01/12/24 09:00 BP 130/68 01/12/24 09:00 Pulse Ox 97 01/12/24 09:00 Oxygen Delivery Method Room Air 01/12/24 09:00 BMI result Body Mass Index 26.9 Const General: alert and awake; No confusion Orientation/consciousness: No confusion HEENT Other: impacted cerumen bilateral Head: Yes normocephalic Ears: external ears normal Face and sinus: Yes normal facial exam Mouth: moist mucous membranes Throat: Yes tonsils normal Eyes Conjunctivae: conjunctivae normal Pupils: Equal, round and reactive pupils present and Pupil accommodation reflex normal Direct Ophthalmoscopy: normal light reflex Neck Neck: No lymphadenopathy Thyroid: Thyroid normal Chest Chest palpation & inspection: normal inspection of the chest Resp Effort & Inspection: normal respiratory effort and no audible wheezes Auscultation: clear to auscultation bilaterally, no crackles, no wheezes and lung sounds not diminished Cardio Rate: regular rate Rhythm: regular rhythm Peripheral pulses: radial pulses present and dorsalis pedis present GI Other: guaiac negative mild enlarged prostate Palpation (GI): no masses Auscultation: normal bowel sounds and normoactive bowel sounds Rectal Exam - Male: Yes deferred Male General Exam: Yes normal external exam Skin General skin exam: no rashes or lesions noted Rashes: no rashes Neuro General: deep tendon reflexes 2+ bilaterally and No confusion Cranial nerves: Yes Equal, round and reactive pupils present, Yes Midline tongue present, Yes Normal hearing present and Yes Ability to bilaterally elevate shoulders present Cognition (Neuro): normal cognition Gait exam (Neuro): Normal gait present Motor exam (neuro): 5/5 motor strength present throughout Deep tendon reflexes (DTR's): Right brachioradialis reflex intensity grade: 2+, Left brachioradialis reflex intensity grade: 2+, Right patellar reflex intensity grade: 2+ and Left patellar reflex intensity grade: 2+ Extrem General: No edema Office Procedures Cerumen Removal From which ear canal was the cerumen removed: bilateral Removal: otoscope w/curette and cerumen loop/spoon Notes: patient tolerated procedure well, no complications and ear canal clear [id number] Wax Removal by Spoon/Curette Assessment & Plan Assessment & Plan (1) Medicare annual wellness visit, subsequent: Code(s): Z00.00 - Encounter for general adult medical examination without abnormal findings Plan: Patient is advised to eat healthy, keep well hydrated, keep active and have adequate sleep. (2) Hypercholesterolemia: Code(s): E78.00 - Pure hypercholesterolemia, unspecified Plan: Avoid fried foods, chicken skin, eggs, butter margarine, pastries and meat. Be it pork or beef they have a lot of cholesterol LDL goal of less than 130 and triglyceride of less than 150 (3) GERD (gastroesophageal reflux disease): Code(s): K21.9 - Gastro-esophageal reflux disease without esophagitis Qualifiers: Esophagitis presence: without esophagitis Qualified Code(s): K21.9 - Gastro-esophageal reflux disease without esophagitis Plan: Avoid the foods that causes that usually spicy foods, tomato products, juices, coffee, soda and foods that your sensitive to. After eating do not lie down, allow 3-4 hours before in lie down. And keep the head of bed above 30 degrees to avoid the acid from going up. (4) BPH (benign prostatic hyperplasia): Comment: Dr. Alonso [facility]man [facility] Code(s): N40.0 - Benign prostatic hyperplasia without lower urinary tract symptoms Qualifiers: Lower urinary tract symptom detail: urinary frequency Lower urinary tract symptom presence: symptoms present Qualified Code(s): N40.1 - Benign prostatic hyperplasia with lower urinary tract symptoms; R35.0 - Frequency of micturition Plan: Stable (5) Carpal tunnel syndrome of right wrist: Comment: Severe June 2023 Code(s): G56.01 - Carpal tunnel syndrome, right upper limb Plan: Patient was seen by ortho and had a planned carpal tunnel release but was postponed. (6) Frequency of micturition: Code(s): R35.0 - Frequency of micturition Plan: Requested for an ultrasound of the bladder (7) Chest pain: Code(s): R07.9 - Chest pain, unspecified Qualifiers: Chest pain type: precordial pain Qualified Code(s): R07.2 - Precordial pain Plan: Will work this up as the patient has risks for heart problem (8) Impacted cerumen of both ears: Code(s): H61.23 - Impacted cerumen, bilateral Plan: scoop used TM intact bilateral no irrigaiton Orders: Orders Complete Blood Count Auto Diff Today E78.00 - Pure hypercholesterolemia, unspecified Lipid Panel Today E78.00 - Pure hypercholesterolemia, unspecified CA stress test Today R07.9 - Chest pain, unspecified Comprehensive Met. Panel Today E78.00 - Pure hypercholesterolemia, unspecified Free T4 (Free Thyroxine) Today E78.00 - Pure hypercholesterolemia, unspecified Thyroid Stimulating Hormone Today E78.00 - Pure hypercholesterolemia, unspecified Vitamin B12 and Folate Today E78.00 - Pure hypercholesterolemia, unspecified UA CC w/rflx Micro + Cult Today R30.0 - Dysuria, R35.0 - Frequency of micturition US bladder Today R35.0 - Frequency of micturition Medications: Refilled albuterol sulfate 90 mcg/actuation (ProAir HFA) 2 puffs inhalation Q4-6H PRN 8.5 grams 0RF bronchospasm E78.00 - Pure hypercholesterolemia, unspecified albuterol sulfate 90 mcg/actuation (ProAir HFA) 2 puffs inhalation Q4-6H PRN 8.5 grams 0RF bronchospasm E78.00 - Pure hypercholesterolemia, unspecified Quality Reporting (2019) Depression/Bipolar (159/160/161/177) PHQ-9: Total score: 1 Coding Level of Care Code Medicare Subsequent (G0439) Est Pt Level 3 (95089) Diagnoses Medicare annual wellness visit, subsequent Z00.00 Hypercholesterolemia E78.00 Gastroesophageal reflux disease without esophagitis K21.9 Esophagitis presence: without esophagitis Benign prostatic hyperplasia with urinary frequency N40.1; R35.0 Lower urinary tract symptom detail: urinary frequency Lower urinary tract symptom presence: symptoms present Carpal tunnel syndrome of right wrist G56.01 Frequency of micturition R35.0 Precordial pain R07.2 Chest pain type: precordial pain Impacted cerumen of both ears H61.23 CPT Codes Office Procedure - CPT: 25289-Ujh Wax Removal by Spoon/Curette ([id number]) Additional Codes PHQ-9 - 09783 - PHQ-9 Billing: ([id number])
== END 2024-01-12 10:05 | disposition home or self-care (01) ==
PROVIDERS: Visit Provider Internal Medicine
DX: Z00.00 Encounter for general adult medical examination without abnormal findings (principal); E78.00 Pure hypercholesterolemia, unspecified; K21.9 Gastro-esophageal reflux disease without esophagitis; N40.1 Benign prostatic hyperplasia with lower urinary tract symptoms; R35.0 Frequency of micturition; G56.01 Carpal tunnel syndrome, right upper limb; R07.2 Precordial pain; H61.23 Impacted cerumen, bilateral
CPT/HCPCS: 69210; 99213; G0439

== ENCOUNTER 2024-01-18 08:06 | Outpatient (REF) | payer MEDICARE, BC, SELFPAY ==
[2024-01-18 08:24] LABS: MANUAL DIFF FLAG NO
[2024-01-18 08:44] LABS: Basophils Absolute Auto 0.1 X10*3/uL (0.0-0.2); Basophils Percent Auto 0.7 % (0-2); Eosinophils Absolute Auto 0.2 X10*3/uL (0.0-0.4); Eosinophils Percent Auto 2.6 % (0-4); Hematocrit 48.1 % (42.0-52.0); Hemoglobin 16.3 g/dl (14.0-18.0); Imm Gran Abs Auto 0.01 X10*3/uL (0.00-0.03); Imm Gran Pct Auto 0.1 % (0.0-0.4); Lymphocytes Absolute Auto 2.3 X10*3/uL (1.2-4.9); Lymphocytes Percent Auto 33.2 % (20-40); Mean Corpuscular HGB Conc 33.9 g/dl (31.0-36.0); Mean Corpuscular Hemoglobin 31.7 pg (27.0-33.0); Mean Corpuscular Volume 93.4 fL (80.0-98.0); Mean Platelet Volume 11.3 fL (9.4-12.4); Monocytes Absolute Auto 0.5 X10*3/uL (0.1-1.2); Monocytes Percent Auto 7.5 % (2-11); Neutrophils Absolute Auto 3.9 x10*3/uL (2.0-8.3); Neutrophils Percent Auto 55.9 % (45-73); Platelet Count 146 X10*3/uL (160-400); Red Blood Count 5.15 X10*6/uL (4.60-5.80); Red Cell Distribution Width 13.5 % (11.0-16.0); White Blood Count 6.9 X10*3/uL (4.8-10.8)
[2024-01-18 09:15] LABS: Appearance Urine Clear; Color Urine Yellow; Glucose Urine UA Negative (Negative); Leukocyte Esterase Urine Negative (Negative); Nitrite Urine Negative (Negative); Specific Gravity - Urine 1.015 (1.005-1.025); Urine Blood Negative (Negative); Urine Ketones Negative (Negative); Urine Protein Negative (Neg-Trace)
[2024-01-18 09:28] LABS: Alanine Aminotransferase 23 U/L (0-40); Albumin Level 4.3 g/dL (3.5-5.0); Alkaline Phosphatase 71 U/L (39-117); Anion Gap 16 (12-20); Aspartate Amino Transferase 22 U/L (5-37); Blood Urea Nitrogen 21 mg/dL (9-16); Calcium 9.8 mg/dL (8.4-10.2); Carbon Dioxide 24 mmol/L (22-29); Chloride 105 mmol/L (96-108); Cholesterol 195 mg/dL (<200); Estimated Glomerular Filt Rate > 60; Glucose Random 97 mg/dL (60-115); HDL Cholesterol 41 mg/dL (>40); LDL Cholesterol Calculated 138 mg/dL (<100); Potassium 3.9 mmol/L (3.3-5.1); Sodium 141 mmol/L (135-145); Total Protein 6.9 g/dL (6.5-8.0); Triglycerides 83 mg/dL (<150)
[2024-01-18 09:50] LABS: Free T4 (Free Thyroxine) 0.81 ng/dL (0.71-1.85); Thyroid Stimulating Hormone 1.58 uIU/mL (0.32-4.0)
[2024-01-18 10:49] LABS: Folate 11.5 ng/mL (> or = 4.0); Vitamin B12 514 pg/mL (200-900)
== END 2024-01-18 08:07 | disposition home or self-care (01) ==
LOC: HO.LAB 08:06
PROVIDERS: PCP Internal Medicine; Visit Provider Internal Medicine
DX: E78.00 Pure hypercholesterolemia, unspecified (principal); R30.0 Dysuria; R35.0 Frequency of micturition
CPT/HCPCS: 36415; 80053; 80061; 81003; 82607; 82746; 84439; 84443; 85025

== ENCOUNTER 2024-01-20 14:17 | Outpatient (REF) | payer MEDICARE, BC, SELFPAY ==
--- NOTE | ~2024-01-20 | US_ITS ---
EXAMINATION: US PELVIS LIMITED (BLADDER) CLINICAL INFORMATION: Frequency of micturition. COMPARISON: X-ray abdomen KUB 12/09/2016. Urinary bladder ultrasound 11/24/2013. TECHNIQUE: Real-time imaging of the bladder. FINDINGS: BLADDER: Well distended and normal. Bilateral ureteral jets are demonstrated. Prevoid bladder volume is 450 mL. Postvoid bladder volume is 169 mL. Prostate volume is 13.0 mL. US/US bladder IMPRESSION: Normal-sized prostate with large 169 mL postvoid residual.
== END 2024-01-20 14:18 | disposition home or self-care (01) ==
LOC: HO.US 14:17
PROVIDERS: PCP Internal Medicine; Visit Provider Internal Medicine
DX: R35.0 Frequency of micturition (principal)
CPT/HCPCS: 76857

== ENCOUNTER → 2024-02-02 08:02 | Outpatient (REF) | payer MEDICARE, BC, SELFPAY ==
--- NOTE | 2024-02-02 08:04 | CA_ITS ---
Acquisition Time: 2024-02-02 08:09:53 Total Exercise Time: 00:05:15 Test Indications: CHEST PAIN Medications: Protocol: MARGARITA Max HR: 125 BPM 86% of Pred: 145 BPM Max BP: 156/076 mmHG Max Work Load: 7.0 METS Exercise stress test exercise 5 min 15 sec of Margarita protocol achieving 86% MPHR, with mild SOB, no chest discomfort, with isolated PACs, with normotensive response to exercise, without EKG changes. Breathing resolved with rest. Test reviewed with Dr. Palomares Referred By: Garrison Ewing Overread By: Addie Jensen
== END ==
LOC: HO.CARD 08:02
PROVIDERS: PCP Internal Medicine; Visit Provider Internal Medicine
DX: R07.9 Chest pain, unspecified (principal)
CPT/HCPCS: 93017

== ENCOUNTER → 2024-02-02 08:04 | Outpatient (BNV) | payer MEDICARE, BC, SELFPAY | PROVIDERS: PCP Internal Medicine; Visit Provider Nurse Practitioner | DX: I49.1 Atrial premature depolarization (principal) | CPT/HCPCS: 93016; 93018 ==

== ENCOUNTER 2024-05-17 09:52 | Outpatient (AMB) | payer MEDICARE, BC, SELFPAY ==
--- NOTE | 2024-05-17 09:54 | A.OFFPC_ITS ---
Vital Signs 05/17/24 09:56 Height 5 ft 3 in Weight 154 lb 2 oz BMI 27.3 BP 120/68 Blood Pressure Location Lt brachial Position Sitting Pulse 67 Pulse Source Pulse Oximeter Pulse Oximetry (%) 96 Oxygen Delivery Method Room Air Intake Visit Reasons: chest pain Intake Note: Patient is here to follow up on Chest pain. Filling And Packing Supervisor Required: No Bender Hand: Not Required per policy Accompanied by: Self / Same As Patient Allergies No Known Allergies Allergy (Verified 05/17/24 09:56) Tobacco use date assessed: 05/17/24 Fall risk assessment: No Falls in past year Last assessed Fall Risk: 05/17/24 Dental Screening Dental Screen Date: 05/17/24 Did you have a dental visit in the last 12 months?: Yes Did you have a dental problem in the last 6 months where you did not have access to dental care?: No Was dental information given to patient?: Patient has dentist HPI chest pain HPI Details 73-year-old overweight male with hyperch olesterolemia GERD BPH right carpal tunnel syndrome frequency chest pain coming in for follow-up. Last seen in January had an annual wellness and requested for ultrasound for the frequency, chest pain workup. Colon test last done in 2019. Stress test done February 02 without EKG changes and bladder ultrasound showing normal-sized prostate with large postvoid residual urinary retention. has had congestion but hit shed on a wall and congestion better [facility] Medical History (Updated 02/10/24 @ 13:21 by Garrison Ewing MD) Carpal tunnel syndrome of right wrist Arthritis of right hand COVID-19 virus infection Elevated blood pressure reading Tick bite (~11/2021) Encounter for Medicare annual wellness exam Internal derangement of left shoulder Impacted cerumen of both ears Medicare annual wellness visit, initial BPH (benign prostatic hyperplasia) Reactive airway disease Hypercholesterolemia GERD (gastroesophageal reflux disease) Cerumen impaction Surgical History History of rotator cuff surgery S/P left rotator cuff repair Hx of colonoscopy Hx of LASIK History of cataract surgery H/O vasectomy Hx of tonsillectomy Tear of right supraspinatus tendon Social History Housing: House Alcohol intake: former Comment: stopped 45 years ago (28 years old Patient Tobacco Use Status: Former Tobacco user Years Smoked: stopped 28 years old e-Cigarette/Vaping Use: Never Used Second Hand Smoke Exposure: No service: No Current occupational status: employed 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 Cognitive needs: No Hearing needs: Yes (Hearing aide) Vision needs: Yes Questionnaire Thrive Questionnaire Date Thrive assessed: 05/17/24 I am a: Patient What is your living situation today?: I have a steady place to live Within the past 12 months, did the food you bought not last and you didn't have the money to get more?: Never true Within the past 12 months, did you worry whether your food would run out before you got money to buy more?: Never true Do you have trouble paying for medicines?: No Do you have trouble getting transportation to medical appointments?: No Do you have trouble paying your heating and electricity bill?: No Do you have trouble taking care of your child, family member or friend?: No Do you have trouble with day-to-day activities such as bathing, preparing meals, shopping, managing finances, etc.?: No Are you currently unemployed and looking for a job?: No Are you interested in more education?: No Currently or been in a relationship where the following occur: No concerns reported THRIVE Score: 0 BARTOLO-7 AMB Questionnaire BARTOLO-7 Date BARTOLO - 7 assessed: 05/17/24 Feeling nervous, anxious, or on edge: 0 = Not at all Not being able to stop or control worryin = Not at all Worrying too much about different things: 0 = Not at all Trouble relaxin = Not at all Being so restless that it is hard to sit still: 0 = Not at all Becoming easily annoyed or irritable: 0 = Not at all Feeling afraid as if something awful might happen: 0 = Not at all Total BARTOLO-7 score (0-4 normal; 5-9 mild; 10-14 moderate; 15-21 severe): 0 Source: Developed by Drs. Wu Mcfarlane, Lexie Grossman, Chente Byrne and colleagues, with an educational karolyn from [employer]. Physical exam (Primary Care) Vital Signs: Last Vital Signs Pulse 67 05/17/24 09:56 BP 120/68 05/17/24 09:56 Pulse Ox 96 05/17/24 09:56 Oxygen Delivery Method Room Air 05/17/24 09:56 BMI result Body Mass Index 27.3 Tobacco/Smoking Status: Tobacco use Status Tobacco use date assessed 05/17/24 05/17/24 10:00 Patient Tobacco Use Status Former Tobacco user 05/17/24 10:00 e-Cigarette/Vaping Use Never Used 05/17/24 10:00 Thrive Assessment: Date of Thrive Assessment Date Thrive assessed 05/17/24 05/17/24 10:00 Currently or been in a relationship where the following occur: No concerns reported Const General: alert; No acute distress Eyes Conjunctivae: conjunctivae normal Resp Auscultation: clear to auscultation bilaterally Cardio Rate: regular rate Rhythm: regular rhythm GI Inspection: Yes normal to inspection Extrem General: Yes normal to inspection and No edema Office Procedures Flu Questionnaire Does the patient have a severe egg allergy?: No Does the patient have severe life threatening allergies?: No Does the patient have a fever or illness today?: No Has the patient ever had Guillain-Farnham Syndrome?: No Has the patient ever had any past reaction to a flu shot?: No Immunizations Fluarix Triv [id number] (PF) 45 mcg (15 mcg x 3)/0.5 mL IM syringe Performing Provider: Garrison Ewing MD [facility] [place] [facility] Administered by: Cinthya Tanner RN on 05/17/24 10:03 Dose Route Admin Location Dispensed Lot Number Expiration Date [facility] Windows Support Engineer 0.5 mL IM Left Deltoid 0.5 mL [id number] 02/06/25 [id number] [employer] VIS Given Date VIS Provided VIS Publication Date 05/17/24 Single Vaccine 21 Eligibility Eligibility Date Funding Source Not [facility] Eligible 05/17/24 Private Coding Level of Care Code Est Pt Level 4 (22418) Diagnoses Urinary retention R33.9 Gastroesophageal reflux disease without esophagitis K21.9 Esophagitis presence: without esophagitis Hypercholesterolemia E78.00 Assessment & Plan Assessment & Plan (1) Urinary retention: Comment: 02/2024 USNormal-sized prostate with large 169 mL postvoid residual. Code(s): R33.9 - Retention of urine, unspecified Category: Medical Plan: Patient was prescribed tamsulosin. And has a Urology. doing better with tamsulosin but has stopped already and doing better (2) GERD (gastroesophageal reflux disease): Code(s): K21.9 - Gastro-esophageal reflux disease without esophagitis Category: Medical Qualifiers: Esophagitis presence: without esophagitis Qualified Code(s): K21.9 - Gastro-esophageal reflux disease without esophagitis Plan: Avoid the foods that causes that usually spicy foods, tomato products, juices, coffee, soda and foods that your sensitive to. After eating do not lie down, allow 3-4 hours before in lie down. And keep the head of bed above 30 degrees to avoid the acid from going up. (3) Hypercholesterolemia: Code(s): E78.00 - Pure hypercholesterolemia, unspecified Category: Medical Plan: Avoid fried foods, chicken skin, eggs, butter margarine, pastries and meat. Be it pork or beef they have a lot of cholesterol LDL goal of less than 130 and triglyceride of less than 150. Orders: Orders Influenza [id number] Immunization Today Z23 - Encounter for immunization
[2024-05-17 09:56] VITALS: BP 120/68; PULSE 67; O2SAT 96; BMI 27.3
== END 2024-05-17 10:32 | disposition home or self-care (01) ==
PROVIDERS: PCP Internal Medicine; Visit Provider Internal Medicine
DX: R33.9 Retention of urine, unspecified (principal); K21.9 Gastro-esophageal reflux disease without esophagitis; E78.00 Pure hypercholesterolemia, unspecified; Z23 Encounter for immunization

== ENCOUNTER → 2024-05-17 09:52 | Outpatient (BNVA) | payer MEDICARE, BC, SELFPAY | PROVIDERS: PCP Internal Medicine; Visit Provider Internal Medicine | DX: Z23 Encounter for immunization (principal); R33.9 Retention of urine, unspecified; K21.9 Gastro-esophageal reflux disease without esophagitis; E78.00 Pure hypercholesterolemia, unspecified | CPT/HCPCS: 90471; 90656; 99212 ==

== ENCOUNTER 2024-06-07 15:06 | Outpatient (AMB) | payer MEDICARE, BC, SELFPAY ==
[2024-06-07 15:38] VITALS: BMI 27.3
--- NOTE | 2024-06-07 15:38 | A.OFFVIS_ITS ---
Vital Signs 06/07/24 15:38 Height 5 ft 3 in Weight 154 lb 2 oz BMI 27.3 Intake Visit Reasons: Preop RT CTR 06/13/24 AR Intake Note: Wu is a 73 yo right hand dominant male who presents today preoperatively for right carpal tunnel release scheduled for 06/13/[address] Cabral. Consent signed in office today. Allergies No Known Allergies Allergy (Verified 05/17/24 09:56) HPI HPI Preop RT CTR 06/13/24 AR: Details: Wu is a 72 year old right hand dominant man who returns to discuss his right carpal tunnel syndrome He complains of numbness in the thumb, index, and middle fingers of his right hand. Symptoms intermittent, but daily, worse at night. He has some numbness in the tip of his index & middle fingers today. We had talked about surgery at the beginning of the year, but it became delayed and then surgery was going to interfere with golf season. [facility] Medical History (Updated 02/10/24 @ 13:21 by Garrison Ewing MD) Carpal tunnel syndrome of right wrist Arthritis of right hand COVID-19 virus infection Elevated blood pressure reading Tick bite (~11/2021) Encounter for Medicare annual wellness exam Internal derangement of left shoulder Impacted cerumen of both ears Medicare annual wellness visit, initial BPH (benign prostatic hyperplasia) Reactive airway disease Hypercholesterolemia GERD (gastroesophageal reflux disease) Cerumen impaction Surgical History History of rotator cuff surgery S/P left rotator cuff repair Hx of colonoscopy Hx of LASIK History of cataract surgery H/O vasectomy Hx of tonsillectomy Tear of right supraspinatus tendon Social History Housing: House Alcohol intake: former Comment: stopped 45 years ago (28 years old Patient Tobacco Use Status: Former Tobacco user Years Smoked: stopped 28 years old e-Cigarette/Vaping Use: Never Used Second Hand Smoke Exposure: No service: No Current occupational status: employed 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 Normal sensation to all other digits of his right hand. No thenar or intrinsic wasting Good APB muscle belly firing and good finger cross Vascular: Cap refill brisk ROM: He can make a fist and extend all his digits No locking or catching Nerve Conduction Study: Right side only IMPRESSION: 1. This is an abnormal study. 2. There is electrodiagnostic evidence for right moderate-severe median ne uropathy at the wrist, consistent with carpal tunnel syndrome. 3. There is no electrodiagnostic evidence for ulnar neuropathy, brachial plexopathy, or cervical radiculopathy. Agustina Mai MD, BENJAMÍN 06/10/23 Radiographs: 3 views of the right hand from 10/29/22 were reviewed by me today in clinic. No fractures or dislocations. he has some generalized arthritic changes in multiple DIP & PIP joints as well as some early basal joint OA seen on radiographs. Assessment & Plan Assessment & Plan (1) Carpal tunnel syndrome of right wrist: Comment: Severe June 2023 Code(s): G56.01 - Carpal tunnel syndrome, right upper limb Category: Medical (2) Arthritis of right hand: Code(s): M19.041 - Primary osteoarthritis, right hand Category: Medical Plan Assessment & Plan: 1. Right Carpal tunnel syndrome, moderate-severe Dense numbness to the middle fingertip & radial half of the index finger Other symptoms intermittent, but daily, worse at night. I educated her about this condition I discussed operative and non-operative treatment options The patient would like to proceed with surgery The risks and benefits of operative treatment were discussed with the patient and the patient wishes to proceed with surgery. These risks include, but are not limited to risk of damage to blood vessels, nerves, tendons, infection, recurrence, incomplete relief of preoperative symptoms, persistent pain, possible need for further surgery and the risks associated with regional blocks and anesthesia. The plan is to take the patient to the operating room sometime on 06/13/24 for the following procedures: 1. Right carpal tunnel release, under local All of the preoperative paperwork including the consent was reviewed today. All the patient's questions were answered He denies Diabetes, blood thinners, asthma, heart, lung, kidney issues 2. Right hand osteoarthritis In multiple DIP & PIP joints I educated him about hand osteoarthritis and activity modification. I recommend he continue with OT hand therapy and working on hand range of motion exercises. Scribed for Sarah Cabral MD by Ludin Gonzales, medical insurance coder, on 06/07/24 at 3:50 PM, EST. Coding Level of Care Code Est Pt Level 4 (28758) Diagnoses Carpal tunnel syndrome of right wrist G56.01 Arthritis of right hand M19.041
== END 2024-06-07 16:02 | disposition home or self-care (01) ==
LOC: HO.HOS 15:07
PROVIDERS: PCP Internal Medicine; Visit Provider Orthopaedic Surgery
DX: G56.01 Carpal tunnel syndrome, right upper limb (principal); M19.041 Primary osteoarthritis, right hand
CPT/HCPCS: 99214

== ENCOUNTER → 2024-06-07 15:06 | Outpatient (BNVA) | payer MEDICARE, BC, SELFPAY | PROVIDERS: PCP Internal Medicine; Visit Provider Orthopaedic Surgery | DX: G56.01 Carpal tunnel syndrome, right upper limb (principal); M19.041 Primary osteoarthritis, right hand | CPT/HCPCS: 99212 ==

== ENCOUNTER 2024-06-13 08:22 | Day surgery (SDC) | payer MEDICARE, BC, SELFPAY ==
[2024-06-13 09:33] VITALS: BMI 27.5
[2024-06-13 09:35] VITALS: BP 132/60; PULSE 52; RESP 16; TEMP 36.2; O2SAT 99
--- NOTE | 2024-06-13 12:58 | P.OP_ITS ---
Operative Note Operative Note Date of Service: 06/13/24 Narrative: Preop diagnosis: 1. Right Carpal tunnel syndrome Postop diagnosis: same Procedure: 1. Right Carpal tunnel release Surgeon: Sarah Cabral MD Optomechanical Technician: None Anesthesia: local block using 1% lidocaine with epinephrine Findings: Thickened transverse carpal ligament. EBL: Less than 5 mL Specimens: None Complications: None Disposition: Brought to recovery room in stable condition Plan: Follow-up for 10-14 days for wound check and suture removal Indications: The patient is 73 years old, with right carpal tunnel syndrome that has been unresponsive to nonoperative management. The risks and benefits of operative treatment including but not limited to risk of damage to blood vessels, nerves, tendons, infection, persistent pain, persistent symptoms, or possible need for additional surgery were discussed with the patient and the patient wishes to proceed with surgery. Procedure: Once consent was obtained a local block was performed using a combination of 1% lidocaine with epinephrine. The patient was then brought back to the operating suite and placed on the operative table in supine position. The right upper extremity was prepped and draped in a standard surgical fashion. Once assured that we had a good block, a 2.0 cm longitudinal incision was made centered over the carpal tunnel. The incision was made through the skin to the subcutaneous tissues using a #15 blade. Dissection was made down to the level of the transverse carpal ligament with care being taken to protect the palmar cutaneous nerve. Once the transverse carpal ligament was clearly visualized, a longitudinal incision was made in the transverse carpal ligament 1st using a #15 blade, then using tenotomy scissors under direct visualization. Care was taken to look for and protect the motor branch of the median nerve when seen in this area. Once satisfied with our carpal tunnel release the wound was copiously irrigated with normal saline and hemostasis was obtained with a brief period of local pressure. The skin edges were reapproximated with some 5.0 nylon suture material and a sterile dressing was applied. The patient appears to have tolerated the procedure well and with no complic ations. All digits were well vascularized at the conclusion of the case.
--- NOTE | 2024-06-13 12:58 | MHC.SHP ---
Pre-Procedural Eval Section A - 24 Hr Update-Section A only Date of Service: 06/13/24 The patient is an INPATIENT: No Changes since office visit: No Cold of Flu in the past 2 weeks, No New Medical Problems, No Changes in Medication and No Patient answered all questions The patient has been examined within 24 hours of the surgical procedure. The History & Physical has been completed within 30 days and I have reviewed it.: Yes Section B - Complete if H&P > 30 days Chief Complaint: Carpal tunnel syndrome, right upper limb Allergies: Allergies Allergy/AdvReac Type Severity Reaction Status Date / Time No Known Allergies Allergy Verified 05/17/24 09:56 Plan Diagnosis/Plan: Unchanged I have reviewed the history and physical and performed a pertinent physical examination on my patient. No changes have occurred unless specified. Time Spent With Patient Time: Total time managing care of this patient today ____ minutes.
[2024-06-13 13:40] VITALS: BP 134/68; PULSE 53; RESP 16; O2SAT 100
== END 2024-06-13 13:41 | disposition home or self-care (01) ==
PROVIDERS: PCP Internal Medicine; Visit Provider Orthopaedic Surgery
PROC: (CPT 64721; principal; 2024-06-13 10:40)
DX: G56.01 Carpal tunnel syndrome, right upper limb (principal); M19.041 Primary osteoarthritis, right hand; E78.00 Pure hypercholesterolemia, unspecified; K21.9 Gastro-esophageal reflux disease without esophagitis; J45.909 Unspecified asthma, uncomplicated; Z98.890 Other specified postprocedural states; Z87.891 Personal history of nicotine dependence
CPT/HCPCS: 64721; J0171; J2003

== ENCOUNTER → 2024-06-13 08:22 | Outpatient (BNV) | payer MEDICARE, BC, SELFPAY | PROVIDERS: PCP Internal Medicine; Visit Provider Orthopaedic Surgery | DX: G56.01 Carpal tunnel syndrome, right upper limb (principal) | CPT/HCPCS: 64721 ==

== ENCOUNTER 2024-06-29 13:04 | Outpatient (AMB) | payer MEDICARE, BC, SELFPAY ==
--- NOTE | 2024-06-29 13:13 | A.OFFVIS_ITS ---
Vital Signs 06/29/24 13:15 Height 5 ft 3 in Weight 155 lb BMI 27.5 Intake Visit Reasons: PO RT CTR 06/13/24 AR Intake Note: Wu is a 73 year old right hand dominant male who presents today post- operatively for right carpal tunnel release performed on 06/13/[address] Cabral. Stitches removed and steri strips applied in office today. Patient reports he is doing well, states very mild numbness at the tip of his middle and ring finger. Allergies No Known Allergies Allergy (Verified 06/29/24 13:14) HPI HPI PO RT CTR 06/13/24 AR: Details: Wu is a 72 year old right hand dominant man who returns S/P right carpal tunnel release, DOS: 06/13/24 He says he is doing well and his sensation has improved. He continues to have some numbness to the tip of his middle finger, and new tingling to the tip of the ring finger. He says he is happy with the results of his surgery. [facility] Medical History (Updated 02/10/24 @ 13:21 by Garrison Ewing MD) Carpal tunnel syndrome of right wrist Arthritis of right hand COVID-19 virus infection Elevated blood pressure reading Tick bite (~11/2021) Encounter for Medicare annual wellness exam Internal derangement of left shoulder Impacted cerumen of both ears Medicare annual wellness visit, initial BPH (benign prostatic hyperplasia) Reactive airway disease Hypercholesterolemia GERD (gastroesophageal reflux disease) Cerumen impaction Surgical History History of rotator cuff surgery S/P left rotator cuff repair Hx of colonoscopy Hx of LASIK History of cataract surgery H/O vasectomy Hx of tonsillectomy Tear of right supraspinatus tendon Social History Housing: House Alcohol intake: former Comment: stopped 45 years ago (28 years old Patient Tobacco Use Status: Former Tobacco user Years Smoked: stopped 28 years old e-Cigarette/Vaping Use: Never Used Second Hand Smoke Exposure: No service: No Current occupational status: employed 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 Sutures removed and Steri-Strips applied He can make a fist and extend all his digits Improved but not yet normal sensation to the tip of the middle finger, and some tingling to the tip of the ring finger. Normal sensation to all other digits of his right hand. Cap refill is brisk Nerve Conduction Study: Right side only IMPRESSION: 1. This is an abnormal study. 2. There is electrodiagnostic evidence for right moderate-severe median neuropathy at the wrist, consistent with carpal tunnel syndrome. 3. There is no electrodiagnostic evidence for ulnar neuropathy, brachial plexopathy, or cervical radiculopathy. Agustina Mai MD, BENJAMÍN 06/10/23 Psych Appearance: grossly normal Affect: normal affect Attitude: cooperative Assessment & Plan Assessment & Plan (1) Carpal tunnel syndrome of right wrist: Comment: Severe June 2023 Code(s): G56.01 - Carpal tunnel syndrome, right upper limb Category: Medical (2) Arthritis of right hand: Code(s): M19.041 - Primary osteoarthritis, right hand Category: Medical Plan Assessment & Plan: 1. Right Carpal tunnel syndrome, S/P release DOS: 06/13/24 Pre-operatively with dense numbness to the middle fingertip & radial half of the index finger Now with improved but not yet normal sensation to the tip of the middle finger, and normal sensation to the thumb & index finger The patient appears to be doing well post-operatively, and is happy with the results of his surgery I educated him about the post-operative course I explained that it may take up to 9 months post-operatively for any sensation to return. I explained the signs and symptoms of infection I discussed activity modifications, he is to lift nothing heavier than a cellphone for the next two weeks He will perform gentle ROM exercises at home He should avoid any underwater activities for the next 5 days He should gently massage about the incision site to reduce the risk of hypersensitivity He can follow up prn 2. Right hand osteoarthritis In multiple DIP & PIP joints I educated him about hand osteoarthritis and activity modification. I recommend he continue with OT hand therapy and working on hand range of motion exercises. Scribed for Sarah Cabral MD by Ludin Gonzales, medical transcription radiology, on 06/29/24 at 1:35 PM, EST. Scribe Plan - Not visible on output: Scribed for Sarah Cabral MD by Ludin Gonzales medical transcription radiology, on [ ] at [ ], EST. Coding Level of Care Code Global (13923) Diagnoses Carpal tunnel syndrome of right wrist G56.01 Arthritis of right hand M19.041
[2024-06-29 13:15] VITALS: BMI 27.5
== END 2024-06-29 13:45 | disposition home or self-care (01) ==
PROVIDERS: PCP Internal Medicine; Visit Provider Orthopaedic Surgery
DX: G56.01 Carpal tunnel syndrome, right upper limb (principal); M19.041 Primary osteoarthritis, right hand
CPT/HCPCS: 99024

== ENCOUNTER → 2024-06-29 13:04 | Outpatient (BNVA) | payer MEDICARE, BC, SELFPAY | PROVIDERS: PCP Internal Medicine; Visit Provider Orthopaedic Surgery | DX: G56.01 Carpal tunnel syndrome, right upper limb (principal); M19.041 Primary osteoarthritis, right hand; Z48.02 Encounter for removal of sutures | CPT/HCPCS: 99212 ==

== ENCOUNTER 2024-11-01 08:25 | Day surgery (SDC) | payer MEDICARE, BC, SELFPAY ==
[2024-10-28 10:19] VITALS: BMI 28.4
[2024-11-01 08:45] VITALS: BMI 27.7
[2024-11-01 08:53] VITALS: BP 141/62; PULSE 55; RESP 16; TEMP 36.7; O2SAT 97
[2024-11-01] MEDS: Lactated Ringers 1,000 ML 80 ML IVCONT (09:02)
--- NOTE | 2024-11-01 10:37 | MHC.SHP ---
Pre-Procedural Eval Section A - 24 Hr Update-Section A only Date of Service: 11/01/24 Section B - Complete if H&P > 30 days Chief Complaint: screening,gerd,dysphagia Details of Present Illness: see H&P no changes Relevant Family History (Specify if Yes): No Relevant Social History: None Present Medications: see Short Stay Collaborative assessment History of Previous Operations: No relevant previous surgery Allergies: Allergies Allergy/AdvReac Type Severity Reaction Status Date / Time No Known Allergies Allergy Verified 06/29/24 13:14 Review of Systems Sugical H&P ROS: Negative: Constitution, Cardiovascular, Respiratory, Neurological, Psychiatric, Hem-Onc, Allergic/Immunologic, Gastrointestinal, Genitourinary, Musculoskeletal, Integumentary, Endocrine and Eyes/Ears/Nose/Throat Exam Surgical H&P Exam: Normal: HEENT, Normal: Heart, Normal: Lungs, Normal: Extremities, Normal: Abdomen, Normal: Skin and Normal: Neurological Plan Diagnosis/Plan: Unchanged I have reviewed the history and physical and performed a pertinent physical examination on my patient. No changes have occurred unless specified. Time Spent With Patient Time: Total time managing care of this patient today ____ minutes.
--- NOTE | 2024-11-01 10:42 | HO.ANESPROP2 ---
HPI - Anesthesia Eval Consult details Narrative: 73 yo male patient for EGD, Colonoscopy [facility] Active Problems Active Problems: All Active Problems Urinary retention (Acute) Chest pain (Acute) Frequency of micturition (Acute) Impacted cerumen of right ear (Acute) Otitis media (Acute) Sinus congestion (Acute) Carpal tunnel syndrome of right wrist (Acute) Medicare annual wellness visit, subsequent (Acute) Numbness of fingers (Acute) Pain in finger of right hand (Acute) Complete rotator cuff tear of left shoulder (Acute) Impacted cerumen of both ears (Acute) Arthritis of right hand (Acute) BPH (benign prostatic hyperplasia) (Acute) Hypercholesterolemia (Acute) GERD (gastroesophageal reflux disease) (Acute) Past Medical History Medical History Esophagitis Dysphagia Arthritis of right hand Elevated blood pressure reading BPH (benign prostatic hyperplasia) Reactive airway disease Hypercholesterolemia GERD (gastroesophageal reflux disease) Family History Family history of problems with anesthesia: No Surgical History Surgical History History of esophagogastroduodenoscopy (EGD) Hx of carpal tunnel repair History of rotator cuff surgery S/P left rotator cuff repair Hx of colonoscopy Hx of LASIK History of cataract surgery H/O vasectomy Hx of tonsillectomy Tear of right supraspinatus tendon History of Problems with Anesthesia: No Social History Social History Housing: House Are you a primary career services coordinator to a significant other at home: No Do you presently have visiting nurse or other home services: No Alcohol intake: former Comment: stopped 45 years ago (28 years old Patient Tobacco Use Status: Former Tobacco user Years Smoked: stopped 28 years old e-Cigarette/Vaping Use: Never Used Second Hand Smoke Exposure: No Use of substances other than those prescribed or required for medical reasons: No Have you been hit, kicked, punched, or otherwise hurt by someone within the past year? 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 Cognitive needs: No Hearing needs: Yes (Hearing aide) Vision needs: Yes Meds Allergies Allergy/AdvReac Type Severity Reaction Status Date / Time No Known Allergies Allergy Verified 06/29/24 13:14 Active Medications: Current Medications Lactated Ringer's (Lr) 1,000 mls @ 80 mls/hr IVCONT .[id number] YULIA Last Admin: 11/01/24 09:02 Dose: 80 mls/hr Home Medications ?Medication ?Instructions ?Recorded ?Confirmed ?Last Taken ?Type ascorbate calcium (vitamin C) 500 500 mg PO DAILY 09/27/20 10/28/24 10/30/24 History mg tablet cetirizine 10 mg capsule (Zyrtec) 10 mg PO DAILY PRN Allergy Symptoms 09/27/20 10/28/24 10/30/24 History fluticasone propionate 50 1 spray intranasal DAILY 09/27/20 10/28/24 10/30/24 History mcg/actuation nasal spray,suspension (Flonase Allergy Relief) lysine 500 mg tablet (L-Lysine) 500 mg PO DAILY 09/27/20 10/28/24 10/30/24 History cholecalciferol (vitamin D3) 50 50 mcg PO DAILY 12/18/21 10/28/24 10/30/24 History mcg (2,000 unit) capsule magnesium oxide 400 mg PO DAILY 12/18/21 10/28/24 10/30/24 History Lactobacillus acidophilus 10 10,000 mmu cells PO DAILY 10/28/24 10/28/24 10/30/24 History billion cell capsule (Probiotic) albuterol sulfate 90 mcg/actuation 2 puff inhalation Q4-6H PRN muscle 10/28/24 10/28/24 09/03/24 History aerosol inhaler spasm omeprazole 20 mg capsule,delayed 20 mg PO DAILY PRN Acid Reflux 10/28/24 10/28/24 10/28/24 History release Exam Height,Weight and Vital Signs: Height 5 ft 3 in Weight 71 kg Last Vital Signs Temp 98.0 F 11/01/24 08:53 Pulse 55 11/01/24 08:53 Resp 16 11/01/24 08:53 BP 141/62 H 11/01/24 08:53 Pulse Ox 97 11/01/24 08:53 O2 Del Method Room Air 11/01/24 08:53 Airway Mallampati Class: III TM Dist: >3cm Neck ROM: Full Partial: Upper and Lower Loose/Missing/Broken Teeth: Yes Heart: RRR Lungs: CTAB Assessment and Plan Assessment Anesthesia Assessment: Anesthesia Plan Discussed and Chart Reviewed Final Anesthetic Review Family History of Problems with Anesthesia: No History of Problems with Anesthesia: No NPO: Yes ASA Class: III Final Preanesthetic Review: No Changes in Pt Med Stat, Meds/Allgs Chart Reviewed, Consent Obtained/Reviewed and Anes Risks/Benef Reviewed Patient Risk: Intermediate Procedure Risk: Low Assessment/Block/Sedation in SS: Assess/Block/Sedation-SS Anesthetic Plan Anesthetic Plan: TIVA Disposition: Standard PACU
[2024-11-01 11:17] VITALS: BP 90/44; PULSE 61; RESP 20; TEMP 36.1; O2SAT 96
[2024-11-01 11:20] VITALS: BP 105/53; PULSE 59; RESP 20; O2SAT 96
[2024-11-01 11:33] VITALS: BP 111/53; PULSE 60; RESP 20; TEMP 36.1; O2SAT 96
--- NOTE | 2024-11-01 11:52 | OP_ITS ---
DATE OF SERVICE: 11/01/2024 SURGEON: Dustin Jane MD INDICATIONS: Colon cancer screening and dysphagia with reflux. PREOPERATIVE DIAGNOSIS: POSTOPERATIVE DIAGNOSIS: PROCEDURE PERFORMED: ESTIMATED BLOOD LOSS: COMPLICATIONS: ANESTHESIA: Monitored anesthesia care. ASSISTANTS: SPECIMENS: PROCEDURES PERFORMED: 1. Upper endoscopy with biopsy. 2. Colonoscopy to the terminal ileum. PROCEDURE DESCRIPTION: History and physical performed. The risks and benefits of the procedure were explained to the patient. Informed consent was obtained. The patient was placed in left lateral decubitus position. The Olympus video gastroscope was introduced into the esophagus, stomach, and duodenum. Examination was performed. The scope was removed. He was repositioned for colonoscopy. A digital rectal exam was performed and was found to be normal. The Olympus pediatric video colonoscope was introduced into the rectum and advanced to the cecum. The cecum was identified by transillumination, palpation, and identification of ileocecal valve. Examination was performed. The scope was removed. He tolerated the procedure well and was sent to recovery room in stable condition. FINDINGS: Upper endoscopy: 1. Esophagus: The esophagus showed several linear erosions just at the EG junction. The largest measured approximately 10 mm. Biopsies were obtained from the distal esophagus. 2. Stomach: The stomach showed no evidence of masses or ulcers. Antral biopsies were obtained. 3. Duodenum: The bulb and 2nd portion were normal. Colonoscopy: The terminal ileum was examined and appeared normal. The visualized colonic mucosa was within normal limits without evidence of masses or ulcers. No polyps were identified. The mucosa appeared normal. There was mild sigmoid diverticulosis. Retroflexed examination showed small internal hemorrhoids. The quality of the prep was good. IMPRESSION: 1. Normal colonoscopy. 2. Erosive esophagitis. RECOMMENDATIONS: 1. Follow up the biopsy results. 2. Repeat colonoscopy is recommended in 5 years for history of colon polyps. This is optional based on age. MD NICKOLAS Cooper/MODL / [id number]
== END 2024-11-01 12:09 | disposition home or self-care (01) ==
PROVIDERS: PCP Internal Medicine; Visit Provider Internal Medicine Gastroenterology
PROC: (CPT 43239; principal; 2024-11-01 10:40)
DX: Z12.11 Encounter for screening for malignant neoplasm of colon (principal); Z86.0101 Personal history of adenomatous and serrated colon polyps; Z83.719 Family history of colon polyps, unspecified; K57.30 Diverticulosis of large intestine without perforation or abscess without bleeding; K64.8 Other hemorrhoids; K58.1 Irritable bowel syndrome with constipation; R14.0 Abdominal distension (gaseous); R13.10 Dysphagia, unspecified; K21.9 Gastro-esophageal reflux disease without esophagitis; K20.80 Other esophagitis without bleeding; Z91.09 Other allergy status, other than to drugs and biological substances; Z79.51 Long term (current) use of inhaled steroids; Z79.899 Other long term (current) drug therapy; Z98.890 Other specified postprocedural states
CPT/HCPCS: 43239; G0105; 88305; 88342; J2003; J2704

== ENCOUNTER 2025-02-13 09:54 | Outpatient (AMB) | payer MEDICARE, BC, SELFPAY ==
[2025-02-13 10:02] VITALS: BP 130/64; PULSE 54; TEMP 36.2; O2SAT 98; BMI 27.3
--- NOTE | 2025-02-13 10:04 | A.OFFVIS_ITS ---
Intake Vital Signs 02/13/25 10:02 02/13/25 10:08 Height 5 ft 3 in Weight 154 lb 4 oz BMI 27.3 27.3 BP 130/64 Blood Pressure Location Lt brachial Position Sitting Pulse 54 Pulse Source Pulse Oximeter Temp 97.1 F Temp Source Temporal Artery Scan Pulse Oximetry (%) 98 Oxygen Delivery Method Room Air Intake Visit Reasons: [facility] [place] G0439 Allergies No Known Allergies Allergy (Verified 02/13/25 10:15) Medication List - Last Reconciled 02/13/25 by Renea Stein PA-C albuterol sulfate 90 mcg/actuation 2 puffs inhalation Q4-6H PRN ascorbate calcium (vitamin C) 500 mg PO DAILY blood pressure monitor (Blood Pressure Kit) As directed cetirizine (Zyrtec) 10 mg PO DAILY PRN cholecalciferol (vitamin D3) 50 mcg PO DAILY fluticasone propionate 50 mcg/actuation (Flonase Allergy Relief) 1 spray intranasal DAILY Lactobacillus acidophilus (Probiotic) 10,000 mmu cells PO DAILY lysine (L-Lysine) 500 mg PO DAILY magnesium oxide 400 mg PO DAILY omeprazole 20 mg PO DAILY PRN tamsulosin 0.4 mg PO BEDTIME HPI SWV G0439 HPI Details 74-year-old male with past medical histo ry of GERD, BPH, hypercholesterolemia last seen 05/2024 coming in for annual wellness visit. In review of the notes, patient recently completed colonoscopy 10/2024 no polyps were identified 5 year repeat colonoscopy. He has been following with orthopedics for arthritis of both hands and carpal tunnel syndrome. Patient tells us today he is feeling generally well. He had has been having left shoulder pain which started a few weeks ago after overhead use. The pain is in the anterior aspect of the right shoulder. Eye exam: yearly with Myel[facility]ctor PSA: Ordered for updated blood work Colonoscopy: 10/2024 repeat in 5 years [facility] Medical History Esophagitis Dysphagia Arthritis of right hand Elevated blood pressure reading BPH (benign prostatic hyperplasia) Reactive airway disease Hypercholesterolemia GERD (gastroesophageal reflux disease) Surgical History History of esophagogastroduodenoscopy (EGD) Hx of carpal tunnel repair History of rotator cuff surgery S/P left rotator cuff repair Hx of colonoscopy Hx of LASIK History of cataract surgery H/O vasectomy Hx of tonsillectomy Tear of right supraspinatus tendon Social History Housing: House Are you a primary outdoor emergency care technician to a significant other at home: No Do you presently have visiting nurse or other home services: No Alcohol intake: former Comment: stopped 45 years ago (28 years old Patient Tobacco Use Status: Former Tobacco user Years Smoked: stopped 28 years old e-Cigarette/Vaping Use: Never Used Second Hand Smoke Exposure: No service: No Current occupational status: employed 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 Cognitive needs: No Hearing needs: Yes (Hearing aide) Vision needs: Yes Questionnaire Medicare Wellness Checkup [age] What gender do you identify with?: male During the past 4 weeks, how much have you been bothered by emotional problems such as feeling anxious, depressed, irritable, sad or downhearted, and blue?: not at all During the past 4 weeks, has your physical & emotional health limited your social activities with family, friends, neighbors, or groups?: not at all During the past 4 weeks, how much bodily pain have you generally had?: very mild pain During the past 4 weeks, was someone available to help you if you needed & wanted help?: yes, as much as I wanted During the past 4 weeks, what was the hardest physical activity you could do for at least 2 minutes?: heavy Can you get to places out of walking distance without help? (For eg., can you travel alone on buses, taxis or drive your car?): Yes Can you go shopping for groceries or clothes without someone's help?: Yes Can you prepare your own meals?: Yes Can you do your housework without help?: Yes Because of any health problems, do you need the help of another person with your personal care needs such as eating, bathing, dressing or getting around the house?: No Can you handle your own money without help?: Yes During the past 4 weeks, how would you rate your health in general?: excellent During the past 4 weeks how have things been going for you?: very well; could hardly better Are you having difficulties driving your car?: no Do you always fasten your seat belt when you are in a car?: yes, usually During past 4 weeks, have you been bothered by the following: never: Falling or dizzy when standing up, Sexual problems?, Trouble eating well?, Teeth or denture problems?, Problems using the telephone? and Tiredness or fatigue? Have you fallen 2 or more times in the past year?: No Are you afraid of falling?: No Are you a smoker?: no During the past 4 weeks, how many drinks of wine, beer, or other alcoholic beverages did you have?: no alcohol at all Do you exercise for about 20 minutes 3 or more times a week?: yes, all the time Have you been given information to help with the following?: yes: Hazards in your house that might hurt you? and yes: Keeping track of your medications? How often do you have trouble taking medicines the way you have been told to take them?: I always take medicine as prescribed How confident are you that you can control & manage most of your health problems?: very confident What is your race?: White PHQ-9 Over the last 2 weeks, how often have you been bothered by any of the following problems? 1. Little interest or pleasure in doing things: not at all 2. Feeling down, depressed, or hopeless: not at all 3. Trouble falling or staying asleep, or sleeping too much: not at all 4. Feeling tired or having little energy: not at all 5. Poor appetite or overeating: not at all 6. Feeling bad about yourself - or that you are a failure or have let yourself or your family down: not at all 7. Trouble concentrating on things, such as reading the newspaper or watching television: not at all 8. Moving or speaking so slowly that other people could have noticed. Or the opposite - being so fidgety or restless that you have been moving around a lot more than usual: not at all 9. Thoughts that you would be better off or of hurting yourself in some way: not at all Total score: 0 Depression Screening Interpretation: Negative Depression Screening Done: Yes 35765 - PHQ-9 Billing: Yes Source: Developed by Lexie Betancur B.W. Chauncey, Chente Byrne and colleagues, with an educational karolyn from [employer]. Review of Systems Const Denies body aches, Denies chills, Denies fever(s), Denies headache(s) and Denies poor appetite Eyes Details: eye doctor yearly and night time lenses were given Reports no additional complaints ENT Denies dysphagia, Denies dizziness, Denies headache(s) and Denies odynophagia Card Denies chest pain, Denies syncope, Denies edema, Denies irregular heart rhythm, Denies lightheadedness and Denies dyspnea Resp Denies cough and Denies dyspnea GI Denies abdominal pain, Denies constipation, Denies dysphagia, Denies diarrhea, Denies nausea, Denies odynophagia and Denies vomiting Reports no additional complaints Musc Reports no additional complaints and Denies abnormal gait Skin/Breast Reports system reviewed and no additional complaints, except as documented Neuro Denies abnormal gait, Denies dizziness, Denies syncope and Denies headache(s) Psych Reports no additional complaints Physical Exam Vital Signs: Last Vital Signs Temp 97.1 F 02/13/25 10:02 Pulse 54 02/13/25 10:02 BP 130/64 02/13/25 10:02 Pulse Ox 98 02/13/25 10:02 Oxygen Delivery Method Room Air 02/13/25 10:02 BMI result Body Mass Index 27.3 Const General: cooperative, healthy appearing, comfortable and no acute distress Orientation/consciousness: patient oriented x3 HEENT Head: Yes normocephalic Ears: hearing grossly normal bilaterally General nose exam: Normal external nose present Face and sinus: Yes normal facial exam and Yes sinuses nontender Mouth: Normal oral and palatal mucosa present and tongue normal Throat: Yes posterior oropharynx normal Eyes General: appearance normal, both eyes and all related structures Conjunctivae: conjunctivae normal Pupils: Equal, round and reactive pupils present EOM: EOMs intact bilaterally and No Nystagmus present Neck Neck: Yes full ROM and Yes no lymphadenopathy Chest Chest palpation & inspection: normal inspection of the chest Resp Effort & Inspection: normal respiratory effort Auscultation: clear to auscultation bilaterally, no crackles, no rales, no rhonchi and no wheezes Cardio Rate: regular rate Rhythm: regular rhythm Peripheral pulses: radial pulses present and dorsalis pedis present GI Inspection: Yes normal to inspection and No Abdominal wall edema Palpation (GI): Soft to palpation, not firm and nontender Auscultation: normal bowel sounds Rectal Exam - Male: Yes deferred General: Yes no CVA tenderness Back/Spine/Pelvis Back: no CVA tenderness Skin General skin exam: no rashes or lesions noted Neuro General: patient oriented x3 Cranial nerves: Yes Equal, round and reactive pupils present, Yes Midline tongue present, Yes Ability to bilaterally elevate shoulders present and No Nystagmus present Gait exam (Neuro): Normal gait present Extrem Other: Tenderness to palpation over anterior aspect of right shoulder. Intact strength, sensation, mobility and no pain with range of motion. General: Yes normal to inspection, Yes full ROM and No edema Psych Speech and movement: Normal speech and movement present Affect: normal affect Attitude: cooperative Insight: Good insight present (Psych) Judgement: Good judgement present (Psych) Assessment & Plan Assessment & Plan (1) Medicare annual wellness visit, subsequent: Code(s): Z00.00 - Encounter for general adult medical examination without abnormal findings Plan: Patient is up-to-date on all recommended routine screenings and vaccinations for his age. I did discuss the shingles vaccine and that it is recommended. Healthy diet and regular exercise is encouraged. Ordered for updated blood work [place] of care was reviewed with patient patient was provided with a written screening schedule. Healthcare proxy/ MOLST forms were reviewed with patient and he states he has previously completed these. (2) Hypercholesterolemia: Code(s): E78.00 - Pure hypercholesterolemia, unspecified Plan: Avoid foods that are high in cholesterol such as red meat, fried foods, eggs and baked goods. Triglyceride goal of less than 150 and LDL goal of less than 130. Currently dietary and lifestyle only (3) GERD (gastroesophageal reflux disease): Code(s): K21.9 - Gastro-esophageal reflux disease without esophagitis Qualifiers: Esophagitis presence: without esophagitis Qualified Code(s): K21.9 - Gastro-esophageal reflux disease without esophagitis Plan: Avoid trigger foods such as citrus, tomato products, soda, caffeine, spicy foods and other foods that may be irritating to your stomach. Avoid laying flat 3-4 hours after eating and elevate the head of the bed 30 degrees to prevent acid from moving into the esophagus. Continue on omeprazole (4) BPH (benign prostatic hyperplasia): Comment: Dr. Alonso [facility] Code(s): N40.0 - Benign prostatic hyperplasia without lower urinary tract symptoms Qualifiers: Lower urinary tract symptom presence: symptoms present Lower urinary tract symptom detail: urinary frequency Qualified Code(s): N40.1 - Benign prostatic hyperplasia with lower urinary tract symptoms; R35.0 - Frequency of micturition Plan: No longer following with Urology. Feels his symptoms are well managed at this time with Tamsulosin. (5) Arthritis of right hand: Code(s): M19.041 - Primary osteoarthritis, right hand Plan: Continue to follow with orthopedics as needed. (6) Right shoulder pain: Code(s): M25.511 - Pain in right shoulder Plan: Patient having right shoulder pain plan to obtain x-ray for further evaluation. Referral was placed to physical therapy and can consider referral to Orthopedics pending x-ray results. Plan This note was constructed using voice recognition software. While every effort has been made to ensure accuracy and machine clerical verifier, still areas may have been included sometimes these areas may affect the content or meeting of the given symptoms. Total time spent caring for the patient today was 30 minutes. This includes time spent before the visit reviewing the chart, time spent during the visit, and time spent after the visit and documentation. Orders: Orders Lipid Panel Today E78.00 - Pure hypercholesterolemia, unspecified Complete Blood Count Auto Diff Today K21.9 - Gastro-esophageal reflux disease without esophagitis, Z00.00 - Encounter for general adult medical examination without abnormal findings Comprehensive Met. Panel Today K21.9 - Gastro-esophageal reflux disease without esophagitis, Z00.00 - Encounter for general adult medical examination without abnormal findings XR shoulder RT min 2V Today M25.511 - Pain in right shoulder Vitamin B12 and Folate Today K21.9 - Gastro-esophageal reflux disease without esophagitis, Z13.21 - Encounter for screening for nutritional disorder Vitamin D 25-OH Total Today K21.9 - Gastro-esophageal reflux disease without esophagitis, Z00.00 - Encounter for general adult medical examination without abnormal findings TSH reflex Free T4 Today K21.9 - Gastro-esophageal reflux disease without esophagitis, Z00.00 - Encounter for general adult medical examination without abnormal findings Free T4 (Free Thyroxine) Today K21.9 - Gastro-esophageal reflux disease without esophagitis, Z00.00 - Encounter for general adult medical examination without abnormal findings PT Evaluation and Treatment Today M25.511 - Pain in right shoulder Quality Reporting (2019) Depression/Bipolar (159/160/161/177) PHQ-9: Total score: 0 Coding Level of Care Code Medicare Subsequent (G0439) Diagnoses Medicare annual wellness visit, subsequent Z00.00 Hypercholesterolemia E78.00 Gastroesophageal reflux disease without esophagitis K21.9 Esophagitis presence: without esophagitis Benign prostatic hyperplasia with urinary frequency N40.1; R35.0 Lower urinary tract symptom presence: symptoms present Lower urinary tract symptom detail: urinary frequency Arthritis of right hand M19.041 Right shoulder pain M25.511 CPT Codes Advance Care Planning - Advance Care Planning discussion: On file, no changes ([id number]) Advance Care Planning - Time spent: 1-15 minutes, on File ([id number]) Additional Codes PHQ-9 - 40336 - PHQ-9 Billing: Yes ([id number]) Advance Care Planning Advance Care Planning discussion: On file, no changes Who was present: patient Time spent: 1-15 minutes, on File
[2025-02-13 10:08] VITALS: BMI 27.3
--- OUTSIDE RECORDS SUMMARY | 2025-02-13 10:29 | XMS_ITS | Patient Health Record ---
Author Organization [facility] Address [address] [place] [address] Care Team Providers Care Math And Science Instructor Name Role Phone Garrison Ewing MD Primary Care Provider Dustin Sanches Jr Unavailable Allergies Allergen (clinical drug ingredient) Drug/Non Drug Allergy documented on EMR Reaction Allergy Type Onset Date Status environmental allerg ies (uncoded) Unknown Allergy Active Results Component Value Reference Range Notes Pathology Reviewed date:11/04/2024 04:06:04 PM Interpretation: Performing Lab:[facility], [address] [place] [id number] Notes/Report: Reason For Referral No Information Medications Medication SIG (Take, Route, Frequency, Duration) Notes Start Date End Date Status ZyrTEC Allergy 10 MG 1 tablet Orally Onc e a day Active ProAir HFA as needed Active Omeprazole prn Active Metamucil Active Vitamin D 1000 UNIT 1 tablet Orally Once a day Active Flonase as needed Active Lysine 500 MG 1 tablet Orally once a day Active Tamsulosin HCl 0.4 MG TAKE 1 CAPSULE ORA LLY AT BEDTIME Oral for 90 Active Probiotic Active Magnesium Active MiraLax (colon prep) 17 GM/SCOOP mixed with Gatorade or Crystal Light Orally begin at 5:00 p.m. the day before the procedure for 1 day 09/19/2024 Active Vitamin B12 Active Vitamin C Active Omeprazole 40 MG 1 capsule 1/2 to 1 h our before morning meal Orally Once a day for 30 days 11/02/2024 Active Immunizations Vaccine Route Administration Date Status Comme nts Influenza Unknown 05/31/2024 Administered Influenza Unknown 05/19/2019 Refused Problems Problem Type SNOMED Code ICD Code Onset Dates Problem Status W/U Status Risk Notes Problem 233559854 Colon cancer screening (Z12.11) Active confirmed Problem 97850901 Dysphagia, unspecified type (R13.10) Active confirmed Problem 233162412 Irritable bowel syndrome with constipation (K58.1) Active confirmed Problem 198086570 Gastroesophageal reflux disease, unspecified whether esophagitis present (K21.9) Active confirmed Vital Signs Temperature 97.3 degrees Fahrenheit 09/19/2024 Blood pressure diastolic 00 mm Hg 09/19/2024 Height 63 in 09/19/2024 Blood pressure systolic 000 mm Hg 09/19/2024 Weight 160 lb 6 oz lbs 09/19/2024 BMI 28.41 kg/m2 09/19/2024 Encounters Encounter Location Date Provider Diagnosis [facility] Outpatient [address] [place] [id number] 11/01/2024 Dustin Jane Jr Colon cancer screening Z12.11 ; Personal history of adenomatous and serrated colon polyps Z86.0101 ; Gastro-esophageal reflux disease with esophagitis, without bleeding K21.[address] [facility] [address] [place] [phone] 09/19/2024 Dustin Jane Jr Gastroesophageal reflux disease, unspecified whether esophagitis present K21.9 ; Dysphagia, unspecified type R13.10 ; Colon cancer screening Z12.11 and Irritable bowel syndrome with constipation K58.1 [facility] [address] [place] [phone] 11/02/2024 Dustin Jane Jr Assessments Encounter Date Diagnosis (ICD Code) Assessment Notes Treatment Notes Treatment Clinical Notes Section Notes 11/01/2024 Colon cancer screening (ICD-10 - Z12.11) 11/01/2024 Personal history of adenomatous and serrated colon polyps (ICD-10 - Z86.0101) 09/19/2024 Dysphagia, unspecified type (ICD-10 - R13.10) We discussed h is symptoms today. We recommended further evaluation of his upper GI symptoms with endoscopy. We discussed risks and benefits of the procedure today. He understands these and agrees to proceed. We discussed diet, lifestyle modifications, and weight management regarding the treatment of reflux. He is due for colon cancer screening. This will be arranged. He is aware of risks and benefits and agrees to proceed. For his irritable bowel symptoms. We recommended simethicone and fiber supplementation with Metamucil. 09/19/2024 Gastroesophageal reflux disease, unspecified whether esophagitis present (ICD-10 - K21.9) Endoscopy material was printed We discussed his symptoms today. We recommended further evaluation of his upper GI symptoms with endoscopy. We discussed risks and benefits of the procedure today. He understands these and agrees to proceed. We discussed diet, lifestyle modifications, and weight management regarding the treatment of reflux. He is due for colon cancer screening. This will be arranged. He is aware of risks and benefits and agrees to proceed. For his irritable bowel symptoms. We recommended simethicone and fiber supplementation with Metamucil. 11/01/2024 Gastro-esophageal reflux disease with esophagitis, without bleeding (ICD-10 - K21.00) 09/19/2024 Colon cancer screening (ICD-10 - Z12.11) We discussed his symptoms today. We recommended further evaluation of his upper GI symptoms with endoscopy. We discussed risks and benefits of the procedure today. He understands these and agrees to proceed. We discussed diet, lifestyle modifications, and weight management regarding the treatment of reflux. He is due for colon cancer screening. This will be arranged. He is aware of risks and benefits and agrees to proceed. For his irritable bowel symptoms. We recommended simethicone and fiber supplementation with Metamucil. 11/01/2024 Dysphagia (ICD-10 - R13.10) 09/19/2024 Irritable bowel syndrome with constipation (ICD-10 - K58.1) We discussed hi s symptoms today. We recommended further evaluation of his upper GI symptoms with endoscopy. We discussed risks and benefits of the procedure today. He understands these and agrees to proceed. We discussed diet, lifestyle modifications, and weight management regarding the treatment of reflux. He is due for colon cancer screening. This will be arranged. He is aware of risks and benefits and agrees to proceed. For his irritable bowel symptoms. We recommended simethicone and fiber supplementation with Metamucil. Plan Of Treatment Future Test Test Name Order Date COLONOSCOPY 05/10/2014 UPPER GI ENDOSCOPY 05/19/2019 COLONOSCOPY 05/19/2019 UPPER GI ENDOSCOPY 09/19/2024 COLONOSCOPY 09/19/2024 Next Appt Details Provider Name:Dustin Nazario georges Jr, 04/17/2025 11:00:00 AM, [address], [address], [place], [phone], Insurance Providers Payer Name Payer Address Payer Phone Subscriber Number Group Number Insured Name Patient Relationship to Insured Coverage Start Date Coverage End Date [place] [address] [place] [address] [id number] [place] Self - patient is the insured [facility] [address] [place], [place] [phone] [id number] [employer] Self - patient is the insured Medical (General) History Medical History History ICD Code Colonoscopy 08/29, normal, fi ve-year followup for family and personal history of colon polyps Upper endoscopy, 08/29, H. py oneyda negative, positive reflux changes treated with PPI environmental allergies Chest pain, negative stress test Urinary retention/ BPH Surgical History Surgery Date(Month/Year) tonsillectomy vasectomy cataract-lens implants lasik rotator cuff tear repair 2016 rotator cuff tear 2020 carpal tunnel surgery on right hand 2023
== END 2025-02-13 10:43 | disposition home or self-care (01) ==
LOC: HO.HMCH 09:54
PROVIDERS: PCP Internal Medicine
DX: Z00.00 Encounter for general adult medical examination without abnormal findings (principal); E78.00 Pure hypercholesterolemia, unspecified; K21.9 Gastro-esophageal reflux disease without esophagitis; N40.1 Benign prostatic hyperplasia with lower urinary tract symptoms; R35.0 Frequency of micturition; M19.041 Primary osteoarthritis, right hand; M25.511 Pain in right shoulder

== ENCOUNTER → 2025-02-13 09:54 | Outpatient (BNVA) | payer MEDICARE, BC, SELFPAY | PROVIDERS: PCP Internal Medicine | DX: Z00.00 Encounter for general adult medical examination without abnormal findings (principal); E78.00 Pure hypercholesterolemia, unspecified; K21.9 Gastro-esophageal reflux disease without esophagitis; N40.1 Benign prostatic hyperplasia with lower urinary tract symptoms; R35.0 Frequency of micturition; M19.041 Primary osteoarthritis, right hand; M25.511 Pain in right shoulder | CPT/HCPCS: 96127 ==

== ENCOUNTER 2025-02-14 07:28 | Outpatient (REF) | payer MEDICARE, BC, SELFPAY ==
--- NOTE | ~2025-02-14 | XR_ITS ---
EXAMINATION: XR SHOULDER, RIGHT CLINICAL INFORMATION: M25.511 - Pain in right shoulder COMPARISON: 06/07/2017. TECHNIQUE: AP external rotation, Grashey, scapular Y, and axillary views of the right shoulder. FINDINGS: Normal bone mineralization. No fracture, dislocation, or suspicious bone lesion. Normal alignment. Surgical anchors seen in the greater tuberosity of the right humeral head. The glenohumeral joint demonstrates moderate degenerative arthritis with undersurface osteophytes. The AC joint demonstrates moderate both undersurface and superior surface spurring. There is a type IV acromion. There is small lateral spurs. The subacromial space is preserved. Remainder of the soft tissue and bony structures appear normal. XR/XR shoulder RT min 2V IMPRESSION: 1. Prior rotator cuff repair. 2. 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 This has mildly progressed from 2017. 3. Type IV acromion with small lateral spurs. Electronically signed by: Zi Jensen MD 02/14/2025 08:25 AM EDT
[2025-02-14 07:38] LABS: MANUAL DIFF FLAG NO
[2025-02-14 07:49] LABS: Hematocrit 46.6 % (42.0-52.0); Hemoglobin 15.7 g/dl (14.0-18.0); Imm Gran Abs Auto 0.01 X10*3/uL (0.00-0.03); Imm Gran Pct Auto 0.2 % (0.0-0.4); Lymphocytes Absolute Auto 2.2 X10*3/uL (1.2-4.9); Mean Corpuscular HGB Conc 33.7 g/dl (31.0-36.0); Mean Corpuscular Hemoglobin 31.4 pg (27.0-33.0); Mean Corpuscular Volume 93.2 fL (80.0-98.0); NRBC Abs Auto 0.000 X10*3/uL (0.0-0.012); NRBC Pct Auto 0.0 /100WBC (0.0-0.2); Platelet Count 145 X10*3/uL (160-400); Red Blood Count 5.00 X10*6/uL (4.60-5.80); White Blood Count 6.6 X10*3/uL (4.8-10.8)
[2025-02-14 08:43] LABS: Alanine Aminotransferase 27 U/L (0-40); Albumin Level 4.3 g/dL (3.5-5.0); Alkaline Phosphatase 75 U/L (39-117); Anion Gap 11 (12-20); Aspartate Amino Transferase 25 U/L (5-37); Blood Urea Nitrogen 18 mg/dL (9-16); Calcium 9.2 mg/dL (8.4-10.2); Carbon Dioxide 27 mmol/L (22-29); Chloride 106 mmol/L (96-108); Cholesterol 201 mg/dL (<200); Estimated Glomerular Filt Rate > 60; HDL Cholesterol 46 mg/dL (>40); Potassium 3.9 mmol/L (3.3-5.1); Sodium 140 mmol/L (135-145); Total Protein 6.6 g/dL (6.5-8.0); Triglycerides 95 mg/dL (<150)
[2025-02-14 08:52] LABS: Free T4 (Free Thyroxine) 0.80 ng/dL (0.71-1.85)
[2025-02-14 09:03] LABS: Folate 9.4 ng/mL (> or = 4.0); Vitamin B12 535 pg/mL (200-900)
== END 2025-02-14 07:29 | disposition home or self-care (01) ==
LOC: HO.LAB 07:28
PROVIDERS: PCP Internal Medicine
DX: Z00.01 Encounter for general adult medical examination with abnormal findings (principal); M19.011 Primary osteoarthritis, right shoulder; K21.9 Gastro-esophageal reflux disease without esophagitis; E78.00 Pure hypercholesterolemia, unspecified; M25.511 Pain in right shoulder; Z13.21 Encounter for screening for nutritional disorder
CPT/HCPCS: 36415; 73030; 80053; 80061; 82306; 82607; 82746; 84439; 84443; 85025

== ENCOUNTER → 2025-02-14 07:39 | Outpatient (BNV) | payer MEDICARE, BC, SELFPAY | PROVIDERS: PCP Internal Medicine; Visit Provider Radiology Diagnostic Radiology | DX: M19.011 Primary osteoarthritis, right shoulder (principal) | CPT/HCPCS: 73030 ==